=== PATIENT | male | born 1940 | race Asian ===

== ENCOUNTER 2016-11-17 14:32 | Inpatient (IN) | payer MEDICARE, MEDICAID ==
[~2016-11-17] VITALS: Ht 162.6 cm; Wt 79.4 kg
[2016-11-17] VITALS (8 sets, daily range): BP systolic 104–132; BP diastolic 86–99
[2016-11-17] MEDS ORDERED: VITAMIN C500 M1 GT (14:58)
[2016-11-17] MEDS ORDERED: FAMOTIDINE20 MG GT (14:58)
[2016-11-17] MEDS ORDERED: GABAPENTIN300 MG GT (14:58)
[2016-11-17] MEDS ORDERED: TYLENOL650 MG/20. GT (14:58)
[2016-11-17] MEDS ORDERED: SPIRONOLACTONE25 MG GT (14:58)
[2016-11-17] MEDS ORDERED: FUROSEMIDE40 MG GT (14:58)
[2016-11-17] MEDS ORDERED: ZYVOX600 MG GT (14:58)
[2016-11-17] MEDS ORDERED: CALCITRIOL0.25 MCG GT (14:58)
[2016-11-17] MEDS ORDERED: CIPRO250 MG GT (14:58)
[2016-11-17] MEDS ORDERED: VASOTEC10 MG GT (14:58)
[2016-11-17] MEDS ORDERED: CLONIDINE HCL0.1 MG GT (14:58)
[2016-11-17] MEDS ORDERED: FLUCONAZOLE100 MG GT (14:58)
[2016-11-17] MEDS ORDERED: METRONIDAZOLE500 MG GT (14:58)
[2016-11-17 15:17] LABS: MEAN CORPUSCULAR HEMOGLOBIN 31.8 PG (27.0-31.0); MEAN CORPUSCULAR VOLUME 96 FL (80-99); MEAN PLATELET VOLUME 15.8 FL (6.5-10.1); PLATELET COUNT 113 K/UL (150-450); RED BLOOD COUNT 3.13 M/UL (4.70-6.10); WHITE BLOOD COUNT 18.5 K/UL (4.8-10.8)
--- NOTE | 2016-11-17 15:24 | Emergency Room Report ---
History of Present Illness General Chief Complaint: General Complaint Source: Medical Record Present Illness HPI 76-year-old male presents to ED for evaluation. Per EMS patient be in rapid A. fib at a convalescent home today. Heart rate to the 140s. Patient has trach, G -tube, on ventilator. Upon arrival patient showing no signs of distress. No reported coughs, fevers or chills. No were shortness of breath. No aggravating or relieving factors. No other associated symptoms Allergies: Coded Allergies: No Known Allergies (Unverified , 11/17/16) Patient History Past Medical History: DM, HTN Past Surgical History: other - trach/gtube Pertinent Family History: none Social History: Denies: alcohol use, drug use, smoking Immunizations: UTD Reviewed Nursing Documentation: PMH: Agreed, PSxH: Agreed Nursing Documentation-PMH Past Medical History: No History, Except For Hx Cardiac Problems: Yes - CHF, A-fib, thrombocytopenia, sepsis Hx Hypertension: Yes Hx Diabetes: Yes Hx Gastrointestinal Problems: Yes - G -tube feeding, Protein -calorie malnutrition, GERD Review of Systems All Other Systems: negative except mentioned in HPI Physical Exam Vital Signs Date Time Temp Pulse Resp B/P Pulse Ox O2 Delivery O2 Flow Rate FiO2 11/17/16 14:35 98.8 118 12 131/95 92 Ambu-Bag 100 Sp02 EP Interpretation: reviewed, normal General Appearance: no apparent distress, alert, GCS 15, non-toxic Head: normocephalic Eyes: bilateral eye PERRL, bilateral eye normal inspection ENT: TMs + canals normal Neck: tracheotomy Respiratory: chest non-tender, lungs clear, normal breath sounds, speaking full sentences Cardiovascular #1: no edema, tachycardia Gastrointestinal: normal bowel sounds, non tender, soft, non-distended, no guarding, no rebound Rectal: deferred Genitourinary: no CVA tenderness Musculoskeletal: normal inspection Neurologic: alert, oriented x3, responsive, motor strength/tone normal, sensory intact, speech normal Psychiatric: normal inspection Skin: normal inspection Lymphatic: normal inspection Procedures Critical Care Time Critical Care Time i. I feel this is a highly complex case requiring extensive working including EKG/Rhythm strip, Xray/CT/US, Blood/urine lab work, repeat exams while in ED, and administration of strong opiates/narcotics for pain control, admission to hospital or close patient follow up. Total time: 30 min bedside evaluation and treatment excludes procedures (EKG). Reason for critical care: A. fib with RVR, sepsis, CHF, pneumonia Possible complications: hypotension, hypertension, [place], shock, arrhythmias, metabolic acidosis, end organ damage, respiratory failure. Interventions: Labs, IV fluids, EKG, chest x-ray. abx Course: Patient brought in for A. fib. Trach/vent patient. cxr shows CHF with ? infiltrate/effusion. EKG shows A. fib with RVR. Heart rate improved with IV fluids. Labs show significant leukocytosis, BNP greater than 25,000, lactate 2.7. Given antibiotics. Consultations: nursing staff, EMS, family Performed by: Dr Linares Tolerated well condition = serious j. because of unstable vital signs this patient had a condition that could potentially threaten life or limb. I feel this is a critical patient who required my full attention while patient was considered critical. Total Critical Care Time excluding procedures was greater than 35 minutes Medical Decision Making Diagnostic Impression: Primary Impression: Atrial fibrillation with rapid ventricular response Additional Impressions: CHF (congestive heart failure) Qualified Codes: I50.9 - Heart failure, unspecified Pneumonia Qualified Codes: J18.9 - Pneumonia, unspecified organism Sepsis Qualified Codes: A41.9 - Sepsis, unspecified organism ER Course Hospital Course 76-year-old male presents to ED with rapid heart rate Differential diagnoses include: [place]/unstable angina, contusion, muscle strain, PTX, rib fracture, pneumonia, Clinical course Patient placed on stretcher. on elementary classroom teacher which shows A. fib with RVR to the 120s. After initial history and physical I ordered labs, EKG, chest x-ray labs reviewed- marked leukocytosis, hemoglobin/hematocrit ok, electrolytes okay , troponins negative, BNP > 20,000. lactate 2.7 Chest x-ray- cardiomegaly, b/l atelctasis vs effusion patient given 30 mL per KG fluid bolus. Given antibiotics. Tachycardia resolved with IV fluids Case discussed with Dr. Scott and he agreed to accept the patient to his service for further care and support I. I feel this is a highly complex case requiring extensive working including EKG/Rhythm strip, Xray/CT/US, Blood/urine lab work, repeat exams while in ED, and administration of strong opiates/narcotics for pain control, admission to hospital or close patient follow up. Diagnosis - afib with RVR, CHF, pneumonia, sepsis admitted to [facility] in serious condition Labs Test 11/17/16 14:45 White Blood Count 18.5 K/UL (4.8-10.8) Red Blood Count 3.13 M/UL (4.70-6.10) Hemoglobin 10.0 G/DL (14.2-18.0) Hematocrit 30.2 % (42.0-52.0) Mean Corpuscular Volume 96 FL (80-99) Mean Corpuscular Hemoglobin 31.8 PG (27.0-31.0) Mean Corpuscular Hemoglobin Concent 33.0 G/DL (32.0-36.0) Red Cell Distribution Width 16.0 % (11.6-14.8) Platelet Count 113 K/UL (150-450) Mean Platelet Volume 15.8 FL (6.5-10.1) Neutrophils (%) (Auto) % (45.0-75.0) Lymphocytes (%) (Auto) % (20.0-45.0) Monocytes (%) (Auto) % (1.0-10.0) Eosinophils (%) (Auto) % (0.0-3.0) Basophils (%) (Auto) % (0.0-2.0) Differential Total Cells Counted 100 Neutrophils % (Manual) 94 % (45-75) Lymphocytes % (Manual) 1 % (20-45) Monocytes % (Manual) 2 % (1-10) Eosinophils % (Manual) 0 % (0-3) Basophils % (Manual) 0 % (0-2) Band Neutrophils 3 % (0-8) Platelet Estimate Decreased Platelet Morphology Giant Platelets Occasional Polychromasia 1+ Anisocytosis 1+ Macrocytosis 1+ Sodium Level 135 mEQ/L (135-145) Potassium Level 4.2 mEQ/L (3.4-4.9) Chloride Level 93 mEQ/L (98-107) Carbon Dioxide Level 32 mEQ/L (20-30) Anion Gap 10 (5-15) Blood Urea Nitrogen 37 mg/dL (7-23) Creatinine 0.7 mg/dL (0.7-1.2) Estimat Glomerular Filtration Rate mL/min (>60) Glucose Level 97 mg/dL (74-106) Lactic Acid Level 2.70 mmol/L (0.66-2.22) Calcium Level 8.3 mg/dL (8.6-10.2) Total Bilirubin 0.7 mg/dL (0.0-1.2) Aspartate Amino Transf (AST/SGOT) 30 U/L (5-40) Alanine Aminotransferase (ALT/SGPT) 16 U/L (3-41) Alkaline Phosphatase 146 U/L (40-129) Total Creatine Kinase 43 U/L (38-174) Creatine Kinase MB 2.9 ng/mL (< 6.7) Creatine Kinase MB Relative Index 6.7 Troponin I < 0.30 ng/mL (<=0.30) Pro-B-Type Natriuretic Peptide 44001 pg/mL (0-450) Total Protein 6.5 g/dL (6.6-8.7) Albumin 2.0 g/dL (3.5-5.2) Globulin 4.5 g/dL Albumin/Globulin Ratio 0.4 (1.0-2.7) EKG Diagnostic Results Rate: tachycardiac Rhythm: other - afib ST Segments: no acute changes ASA given to the pt in ED: No Rhythm Strip Diag. Results EP Interpretation: yes Rhythm: no PVC's, no ectopy Chest X-Ray Diagnostic Results EP Interpretation: No Findings: no pneumothorax, no acute cardiopulmonary disease, other - cardiomegaly. b/l effusion. ? infiltrate Number of Views: 1 Last Vital Signs Date Time Temp Pulse Resp B/P Pulse Ox O2 Delivery O2 Flow Rate FiO2 11/17/16 15:04 99.6 11/17/16 14:56 123 26 100 11/17/16 14:35 131/95 92 Ambu-Bag Status: improved Disposition: ADMITTED INPATIENT Condition: Serious Referrals: BREANNE SCOTT (PCP) IWONA LINARES M.D. Nov 17, 2016 15:24
[2016-11-17 15:30] LABS: TROPONIN I < 0.30 ng/mL (<=0.30)
[2016-11-17 15:33] LABS: ALANINE AMINOTRANSFERASE 16 U/L (3-41); ALBUMIN/GLOBULIN RATIO 0.4 (1.0-2.7); ANION GAP 10 (5-15); ASPARTATE AMINO TRANSFERASE 30 U/L (5-40); CALCIUM 8.3 mg/dL (8.6-10.2); CARBON DIOXIDE 32 mEQ/L (20-30); CHLORIDE 93 mEQ/L (98-107); CREATININE 0.7 mg/dL (0.7-1.2); HEMOLYSIS 80; POTASSIUM 4.2 mEQ/L (3.4-4.9); SODIUM 135 mEQ/L (135-145); TOTAL PROTEIN 6.5 g/dL (6.6-8.7)
[2016-11-17 15:37] LABS: REFLEX LACTIC ACID YES OR NO YES
[2016-11-17 15:44] LABS: CKMB 2.9 ng/mL (< 6.7)
[2016-11-17] MEDS ORDERED: Cefepime HCl 1 GM in NS 55 ML IV ONE (16:00)
[2016-11-17] MEDS ORDERED: Azithromycin 500 MG in NS 275 ML IV ONE (16:00)
[2016-11-17 16:02] LABS: BAND NEUTROPHILS % (MANUAL) 3 % (0-8); LYMPHOCYTES % (MANUAL) 1 % (20-45); NEUTROPHILS % (MANUAL) 94 % (45-75); TOTAL CELLS COUNTED 100
[2016-11-17 16:03] LABS: ANISOCYTOSIS 1+; BASOPHILS % (MANUAL) 0 % (0-2); EOSINOPHILS % (MANUAL) 0 % (0-3); MACROCYTES 1+; PLATELET ESTIMATE DECREASED; POLYCHROMASIA 1+
[2016-11-17] MEDS ORDERED: Cefepime 1gm vial ONE (16:22)
[2016-11-17] MEDS ORDERED: Azithromycin Inj IV ONE (16:22)
--- NOTE | 2016-11-17 16:31 | Diagnostic Imaging Report ---
Indication: Shortness of breath Technique: One view of the chest Comparison: none Findings: There is extensive bilateral diffuse interstitial and alveolar parenchymal infiltrates versus edema. There is probably a moderate to large left-sided pleural effusion. The heart size is difficult to assess, suspect borderline enlarged. Tracheostomy is present. There are degenerative changes of the right shoulder Impression: Bilateral diffuse parenchymal infiltrates versus edema. Left pleural effusion Tracheostomy
[2016-11-17 16:41] LABS: APPEARANCE,URINE CLEAR; KETONES,URINE NEGATIVE (NEGATIVE); LEUKOCYTE ESTERASE ,URINE 2+ (NEGATIVE); NITRITE,URINE NEGATIVE (NEGATIVE); PH,URINE 5 (4.5-8.0); PROTEIN,URINE 2+ (NEGATIVE); UROBILINOGEN,URINE NORMAL MG/DL (0.0-1.0)
[2016-11-17 17:35] LABS: BACTERIA,URINE MODERATE /HPF; WBC,URINE 20-30 /HPF (0 - 0)
[2016-11-18] VITALS: BP 130/91
[2016-11-18] MEDS ORDERED: Carvedilol 6.25mg Tab GT ONE
--- NOTE | 2016-11-18 00:28 | Consultation ---
DATE OF CONSULTATION: 11/17/2016 CARDIOLOGY CONSULTATION: CONSULTING PHYSICIAN: Ryan Desai M.D. REQUESTING PHYSICIAN: Merlin Scott M.D. REASON FOR CONSULTATION: Rapid atrial fibrillation in the setting of his systolic congestive heart failure. HISTORY OF PRESENT ILLNESS: This is a 76-year-old male with ventilator-dependent respiratory failure. He is status post tracheostomy about six weeks ago. He was hospitalized at [facility]. 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 He was ultimately stabilized and discharged to a alf facility. PAST MEDICAL HISTORY: Type 2 diabetes mellitus, hypertension, paroxysmal atrial fibrillation, tachy-boris syndrome, conduction system disease of the heart, chronic systolic congestive heart failure, respiratory failure with tracheostomy, and prostatic hypertrophy. MEDICATIONS: Reviewed and reconciled. ALLERGIES: None. FAMILY HISTORY: Noncontributory. SOCIAL HISTORY: Decision maker is his sister. No record of smoking, alcohol, or substance abuse. REVIEW OF SYSTEMS: Otherwise not obtainable from the patient. PHYSICAL EXAMINATION: VITAL SIGNS: Afebrile, blood pressure 131/95, pulse rate 118, and respiratory rate 12. HEENT: Normocephalic and atraumatic. Conjunctivae are pink. Oropharynx is clear. NECK: Supple. Trach site with thin secretions. LUNGS: With bilateral breath sounds and rales. CARDIAC: Irregularly irregular rhythm. Rapid rate. Normal S1 and S2. No murmur. ABDOMEN: Soft and nontender. EXTREMITIES: With dependent edema of 2+ to his thigh. DIAGNOSTIC AND LABORATORY DATA: EKG reveals atrial fibrillation, rapid ventricular response, and nonspecific ST-T wave changes. Chest x-ray reveals congestive heart failure with cardiomegaly and pleural effusions. Pro-natriuretic peptide is over 20,000. Lactate is 2.7. Urinalysis is with 15 to 20 white cells. IMPRESSION: 1. Paroxysmal atrial fibrillation with rapid ventricular response. 2. Acute on chronic systolic congestive heart failure. 3. Sepsis. 4. Possible pneumonia. 5. Ventilator-dependent respiratory failure. 6. Urinary tract infection. 7. Severe cardiomyopathy. PLAN: 1. Ventilator support. 2. Panculture. 3. Empiric antibiotics. 4. Diuresis. 5. Adjust ventilator settings to optimize acid-based status. 6. Titrate beta-tin and angiotensin-converting enzyme inhibitor. 7. Hold diuresis for now. 8. ICU care. 9. Cardiac monitoring. Ryan Desai M.D. DR: Ara JOB#: [id number] CC:
[2016-11-18] MEDS: Enalapril 5mg tab GT SCH ×3 (01:22→21:39)
[2016-11-18] MEDS ORDERED: NOVOLOG100 UNIT/3 SUBQ (01:57)
[2016-11-18] MEDS ORDERED: COLACE100 MG GT (01:57)
[2016-11-18] MEDS ORDERED: NORCO 5-325 TA1 EACH GT ×2 (01:57)
[2016-11-18] MEDS ORDERED: PROMOD946 ML GT (01:57)
[2016-11-18] MEDS ORDERED: dulcolax suppository RECTAL (01:57)
[2016-11-18] MEDS ORDERED: APATATE FORTE237 ML GT (01:57)
[2016-11-18] MEDS ORDERED: MULTIVITAMINS1 EA13 ORAL (01:57)
[2016-11-18] MEDS ORDERED: ZOFRAN 4 MG4 MG/2 ML IV (01:57)
[2016-11-18] MEDS ORDERED: MILK OF MA400 MG/51 GT (01:57)
[2016-11-18] MEDS ORDERED: FLEET ENEMA133 ML (01:57)
[2016-11-18] MEDS ORDERED: ZINC SULFATE220 M1 GT (01:57)
[2016-11-18] MEDS ORDERED: EPOGEN20000 UNIT SUBQ (02:10)
[2016-11-18] MEDS ORDERED: IRON325 M2 GT (02:11)
[2016-11-18] MEDS ORDERED: Metoprolol 5mg/5ml Inj IVP ONE ×3 (03:00→10:00)
[2016-11-18 04:00] VITALS: BP_SYST 113; BP_DIAS 84; BP_DIAS 85
[2016-11-18 04:54] LABS: MEAN CORPUSCULAR HEMOGLOBIN 31.9 PG (27.0-31.0); MEAN CORPUSCULAR HGB CONC 33.2 G/DL (32.0-36.0); MEAN CORPUSCULAR VOLUME 96 FL (80-99); MEAN PLATELET VOLUME 13.6 FL (6.5-10.1); PLATELET COUNT 72 K/UL (150-450); RED BLOOD COUNT 2.42 M/UL (4.70-6.10); RED CELL DISTRIBUTION WIDTH 16.1 % (11.6-14.8); WHITE BLOOD COUNT 18.5 K/UL (4.8-10.8)
[2016-11-18 05:14] LABS: ALANINE AMINOTRANSFERASE 13 U/L (3-41); ALBUMIN/GLOBULIN RATIO 0.4 (1.0-2.7); ANION GAP 10 (5-15); ASPARTATE AMINO TRANSFERASE 23 U/L (5-40); CALCIUM 7.7 mg/dL (8.6-10.2); CARBON DIOXIDE 31 mEQ/L (20-30); CHLORIDE 98 mEQ/L (98-107); CREATININE 0.6 mg/dL (0.7-1.2); HEMOLYSIS 1; POTASSIUM 3.5 mEQ/L (3.4-4.9); SODIUM 139 mEQ/L (135-145); TOTAL PROTEIN 5.3 g/dL (6.6-8.7)
[2016-11-18] MEDS ORDERED: NovoLOG Insulin Flexpen SUBQ SCH (06:00)
[2016-11-18] MEDS ORDERED: Norco 5mg/325mg tab GT PRN (06:00)
[2016-11-18] MEDS ORDERED: Acetaminophen 650mg/20.3ml GT PRN (06:00)
[2016-11-18] MEDS ORDERED: Fleet's Enema 133ml RECTAL PRN (06:00)
[2016-11-18] MEDS ORDERED: Milk of Magnesia 30ml Ud GT PRN (06:00)
[2016-11-18] MEDS: NovoLOG Insulin Flexpen SUBQ SCH ×3 (06:46→18:02)
[2016-11-18 08:00] VITALS: BP 138/68
--- NOTE | 2016-11-18 08:28 | Progress Note ---
DATE: 11/18/2016 CARDIOLOGY PROGRESS NOTE SUBJECTIVE: The patient remains on ventilator support. He continues to have congestion, monitored rhythm, atrial fibrillation, frequent ventricular ectopics, and increased ventricular response. OBJECTIVE: VITAL SIGNS: Blood pressure is 130/90, heart rate, 113, respiratory is 14 to 18 and the patient remains afebrile. LUNGS: Bilateral breath sounds with rhonchi. Basilar rales. CARDIAC: Irregularly irregular rhythm. Normal S1 and S2. A 1/6 systolic apical murmur. ABDOMEN: Soft. EXTREMITIES: With trace edema. LABORATORY AND DIAGNOSTIC DATA: White count 18.5 and hemoglobin 7.7. Potassium 3.5, BUN 36, and creatinine 0.6. Albumin 1.7. IMPRESSION: 1. Sepsis. 2. Lactic acidosis resolved. 3. Probable pneumonia. 4. Urinary tract infection. 5. Hypertensive heart disease. 6. Acute on chronic systolic congestive heart failure. 7. Paroxysmal atrial fibrillation with rapid ventricular response. 8. 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 PLAN: Advance beta-tin. Continue and titrate anti-failure regimen. Antimicrobials. Respiratory hygiene. The patient may require a pacemaker in the future although this should be deferred unless absolutely necessary as the patient has very poor performance status. Ryan Desai M.D. DR: Gaby JOB#: [id number] CC:
[2016-11-18] MEDS: Calcitriol 0.25mcg Cap GT SCH (09:00)
[2016-11-18] MEDS ORDERED: Multivitamin w/Minerals tab ORAL SCH (09:00)
[2016-11-18] MEDS: Zinc Sulfate 220mg cap GT SCH (09:00)
[2016-11-18] MEDS: Spironolactone 25mg tab GT SCH (09:00)
[2016-11-18] MEDS ORDERED: Furosemide 40mg tab GT SCH (09:00)
[2016-11-18] MEDS: Multivitamin 5ml Liquid GT SCH (09:00)
[2016-11-18] MEDS ORDERED: Metoprolol 5mg/5ml Inj IVP SCH (09:00)
[2016-11-18] MEDS: Gabapentin 300 MG/6 ML Soln GT SCH ×3 (09:00→18:05)
[2016-11-18 09:24] LABS: ANISOCYTOSIS 1+; BAND NEUTROPHILS % (MANUAL) 1 % (0-8); BASOPHILS % (MANUAL) 0 % (0-2); EOSINOPHILS % (MANUAL) 0 % (0-3); LYMPHOCYTES % (MANUAL) 2 % (20-45); NEUTROPHILS % (MANUAL) 96 % (45-75); PLATELET ESTIMATE DECREASED; PLATELET MORPHOLOGY NORMAL; TOTAL CELLS COUNTED 100
[2016-11-18 09:25] LABS: HYPOCHROMASIA 1+
[2016-11-18] MEDS ORDERED: Pneumococcal Vaccine 25mcg/0.5ml IM ONE (10:00)
[2016-11-18] MEDS ORDERED: Influenza Virus Vaccine 0.5ml IM ONE (10:00)
[2016-11-18] MEDS: Docusate 100mg tablet GT SCH (10:02)
[2016-11-18] MEDS: Ascorbic Acid 500mg tab GT SCH (10:02)
[2016-11-18] MEDS: Carvedilol 6.25mg Tab GT SCH ×2 (10:02→21:39)
--- NOTE | 2016-11-18 10:59 | History & Physical ---
History and Physical History & Physicial HISTORY OF PRESENT ILLNESS: 76-year-old male with ventilator-dependent respiratory failure and chronic debility with recent prolonged hospitalization. He is status post tracheostomy about six weeks ago. He was hospitalized at [facility]. 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 He was admitted with rapid atrial fib and sepsis. Patient had multiple issues including thrombocytopenia, anemia, and need for transfusion. patient is now ventilator dependent. SNF records reviewed PAST MEDICAL HISTORY: Pneumonia, thrombocytopenia, anemia, prior transfusion, Type 2 diabetes mellitus, hypertension, paroxysmal atrial fibrillation, conduction system disease of the heart, chronic systolic congestive heart failure, hematuria respiratory failure with tracheostomy, and prostatic hypertrophy. MEDICATIONS: Reviewed and reconciled. ALLERGIES: None. FAMILY HISTORY: Noncontributory. SOCIAL HISTORY: Decision maker is his sister. No record of smoking, alcohol, or substance abuse. now at [facility] REVIEW OF SYSTEMS: not obtainable from the patient. PHYSICAL EXAMINATION: VITAL SIGNS: 98.8 98%, blood pressure 138/68, pulse rate 113, and respiratory rate 14. HEENT: Normocephalic and atraumatic. Conjunctivae are pink. Oropharynx is clear. NECK: Supple. Trach site clear; carotid upstroke normal LUNGS: With bilateral breath sounds and some rhonchi CARDIAC: Irregularly irregular rhythm. Rapid rate. Normal S1 and S2. No murmur. rubs or gallops ABDOMEN: Soft and nontender. no HSM; GT EXTREMITIES: With dependent edema of 2+ without CC. NEURO: nonfocal and weak DIAGNOSTIC AND LABORATORY DATA: Labs Test 11/17/16 14:45 11/17/16 16:18 11/18/16 04:10 White Blood Count 18.5 K/UL (4.8-10.8) 18.5 K/UL (4.8-10.8) Red Blood Count 3.13 M/UL (4.70-6.10) 2.42 M/UL (4.70-6.10) Hemoglobin 10.0 G/DL (14.2-18.0) 7.7 G/DL (14.2-18.0) Hematocrit 30.2 % (42.0-52.0) 23.2 % (42.0-52.0) Mean Corpuscular Volume 96 FL (80-99) 96 FL (80-99) Mean Corpuscular Hemoglobin 31.8 PG (27.0-31.0) 31.9 PG (27.0-31.0) Mean Corpuscular Hemoglobin Concent 33.0 G/DL (32.0-36.0) 33.2 G/DL (32.0-36.0) Red Cell Distribution Width 16.0 % (11.6-14.8) 16.1 % (11.6-14.8) Platelet Count 113 K/UL (150-450) 72 K/UL (150-450) Mean Platelet Volume 15.8 FL (6.5-10.1) 13.6 FL (6.5-10.1) Neutrophils (%) (Auto) % (45.0-75.0) % (45.0-75.0) Lymphocytes (%) (Auto) % (20.0-45.0) % (20.0-45.0) Monocytes (%) (Auto) % (1.0-10.0) % (1.0-10.0) Eosinophils (%) (Auto) % (0.0-3.0) % (0.0-3.0) Basophils (%) (Auto) % (0.0-2.0) % (0.0-2.0) Differential Total Cells Counted 100 100 Neutrophils % (Manual) 94 % (45-75) 96 % (45-75) Lymphocytes % (Manual) 1 % (20-45) 2 % (20-45) Monocytes % (Manual) 2 % (1-10) 1 % (1-10) Eosinophils % (Manual) 0 % (0-3) 0 % (0-3) Basophils % (Manual) 0 % (0-2) 0 % (0-2) Band Neutrophils 3 % (0-8) 1 % (0-8) Platelet Estimate Decreased Decreased Platelet Morphology Normal Giant Platelets Occasional Polychromasia 1+ Anisocytosis 1+ 1+ Macrocytosis 1+ Sodium Level 135 mEQ/L (135-145) 139 mEQ/L (135-145) Potassium Level 4.2 mEQ/L (3.4-4.9) 3.5 mEQ/L (3.4-4.9) Chloride Level 93 mEQ/L (98-107) 98 mEQ/L (98-107) Carbon Dioxide Level 32 mEQ/L (20-30) 31 mEQ/L (20-30) Anion Gap 10 (5-15) 10 (5-15) Blood Urea Nitrogen 37 mg/dL (7-23) 36 mg/dL (7-23) Creatinine 0.7 mg/dL (0.7-1.2) 0.6 mg/dL (0.7-1.2) Estimat Glomerular Filtration Rate mL/min (>60) mL/min (>60) Glucose Level 97 mg/dL (74-106) 50 mg/dL (74-106) Lactic Acid Level 2.70 mmol/L (0.66-2.22) 2.50 mmol/L (0.66-2.22) 1.50 mmol/L (0.66-2.22) Calcium Level 8.3 mg/dL (8.6-10.2) 7.7 mg/dL (8.6-10.2) Total Bilirubin 0.7 mg/dL (0.0-1.2) 0.6 mg/dL (0.0-1.2) Aspartate Amino Transf (AST/SGOT) 30 U/L (5-40) 23 U/L (5-40) Alanine Aminotransferase (ALT/SGPT) 16 U/L (3-41) 13 U/L (3-41) Alkaline Phosphatase 146 U/L (40-129) 122 U/L (40-129) Total Creatine Kinase 43 U/L (38-174) Creatine Kinase MB 2.9 ng/mL (< 6.7) Creatine Kinase MB Relative Index 6.7 Troponin I < 0.30 ng/mL (<=0.30) Pro-B-Type Natriuretic Peptide 78643 pg/mL (0-450) Total Protein 6.5 g/dL (6.6-8.7) 5.3 g/dL (6.6-8.7) Albumin 2.0 g/dL (3.5-5.2) 1.7 g/dL (3.5-5.2) Globulin 4.5 g/dL 3.6 g/dL Albumin/Globulin Ratio 0.4 (1.0-2.7) 0.4 (1.0-2.7) Urine Color Yellow Urine Appearance Clear Urine pH 5 (4.5-8.0) Urine Specific [place] 1.015 (1.005-1.035) Urine Protein 2+ (NEGATIVE) Urine Glucose (UA) Negative (NEGATIVE) Urine Ketones Negative (NEGATIVE) Urine Occult Blood 5+ (NEGATIVE) Urine Nitrite Negative (NEGATIVE) Urine Bilirubin Negative (NEGATIVE) Urine Urobilinogen Normal MG/DL (0.0-1.0) Urine Leukocyte Esterase 2+ (NEGATIVE) Urine RBC 5-10 /HPF (0 - 0) Urine WBC 20-30 /HPF (0 - 0) Urine Squamous Epithelial Cells None /LPF (NONE/OCC) Urine Bacteria Moderate /HPF (NONE) Hypochromasia 1+ IMPRESSION: 1. Paroxysmal atrial fibrillation with rapid ventricular response. 2. Acute on chronic systolic congestive heart failure. 3. Sepsis syncrome. 4. leukocytosis 5. Ventilator-dependent respiratory failure. 6. thrombocytopenia 7. Severe cardiomyopathy. 8. anemia 9. acute on chronic encephalopathy 10. GT 11. Aspiration PLAN: 1. Ventilator management 2. Panculture. 3. Empiric antibiotics. ID evaluation 4. Diuresis per cardiology when appropriate 5. monitor acid-based status. 6. Titrate beta-tin and angiotensin-converting enzyme inhibitor per cardiology. 7. resume SNF meds 8. resume feeds 9. Cardiac monitoring needed impression, plan, and exam edited and reviewed in detail care discussed with BREANNE MEDRANO Nov 18, 2016 10:59
[2016-11-18 12:00] VITALS: BP 101/80
[2016-11-18] MEDS ORDERED: Fluconazole 100mg tab GT SCH (12:00)
[2016-11-18] MEDS ORDERED: metroNIDAZOLE 500mg tab GT SCH (13:00)
[2016-11-18] MEDS ORDERED: Vancomycin 1gm/D5W 275ml IVPB ONE ×4 (14:00→19:00)
[2016-11-18 16:00] VITALS: BP 122/94
[2016-11-18] MEDS ORDERED: Vancomycin 750mg/D5W 275ml IVPB SCH ×2 (17:00)
--- NOTE | 2016-11-18 18:08 | Consultation ---
DATE OF CONSULTATION: 11/18/2016 INFECTIOUS DISEASE CONSULTATION REFERRING PHYSICIAN: Merlin Scott M.D. REASON FOR CONSULTATION: Pneumonia. HISTORY OF PRESENTING ILLNESS: This is a 76-year-old gentleman with history of respiratory failure, status post tracheostomy, who came in to [facility]. An Infectious Diseases consultation has been obtained for pneumonia. PAST MEDICAL HISTORY: 1. History of pneumonia. 2. Diabetes. 3. Hypertension. 4. Atrial fibrillation. 5. Conduction system disease. 6. Congestive heart failure. 7. Respiratory failure, status post tracheostomy. 8. Status post G-tube placement. 9. Prostatic hypertrophy. MEDICATIONS: As an inpatient, the patient is on Epogen, Cipro, Flagyl, fluconazole, Coreg, metoprolol, ascorbic acid, calcitriol, docusate, Lasix, gabapentin, linezolid, spironolactone, zinc sulfate, multivitamin, insulin, clonidine, Tylenol, [place], milk of magnesia, Zofran and Vasotec. ALLERGIES: No known drug allergies. SOCIAL HISTORY: No history of smoking, alcohol, or drug use. FAMILY HISTORY: Unknown. REVIEW OF SYSTEMS: Unable to obtain currently. PHYSICAL EXAMINATION: VITAL SIGNS: Temperature of 95.9 degrees, T-max of 100.6 degrees, pulse of 95, respiratory rate 20, blood pressure 138/68 and O2 saturation of 100%. HEENT: Pupils equally reactive to light and accommodation. Mouth appears clean without thrush. NECK: Supple. No adenopathy. No JVD. CARDIOVASCULAR: Regular rate and rhythm. No murmurs. LUNGS: Clear to auscultation bilaterally. No crackles. No wheezes. ABDOMEN: Soft and nontender. No organomegaly. G-tube site appears clean. EXTREMITIES: No cyanosis and no clubbing. Edema noted bilaterally. LABORATORY AND DIAGNOSTIC DATA: White count 18.5, hemoglobin 7.7, hematocrit 23.2, MCV 96, and platelet count of 72,000 with neutrophils of 96%. Sodium 139, potassium 3.5, chloride 98, bicarbonate 31, BUN 36, creatinine 0.6 and glucose 50. Calcium 7.7. Total bilirubin 0.6. AST 23, ALT 13 and alkaline phosphatase 122. Total protein 5.3. Albumin 1.7. Urinalysis showing 20 to 30 white cells. Urine cultures are negative so far. Chest x-ray showing bilateral diffuse parenchymal infiltrates versus edema. Left-sided pleural effusion noted. ASSESSMENT: The patient is a 76-year-old gentleman with history of respiratory failure, status post tracheostomy who comes in with 1. Possible aspiration pneumonia. 2. Leukocytosis. 3. Diabetes. 4. Hypertension. 5. Urinary tract infection. PLAN: 1. We will order sputum for Gram stain and culture. 2. We will order blood cultures. 3. Discontinue linezolid, Cipro, Flagyl and fluconazole. 4. We will start the patient on vancomycin and Zosyn. 5. We will follow up cultures and adjust antibiotics accordingly. I would like to thank, Dr. Scott, for this consultation. Toya Raphael M.D. DR: MICHAEL JOB#: [id number] CC: Merlin Scott M.D.
[2016-11-18 20:00] VITALS: BP 130/85
--- NOTE | 2016-11-18 20:34 | General Progress Note ---
Assessment/Plan Problem List: (1) CKD (chronic kidney disease) stage 2, GFR 60-89 ml/min ICD Codes: N18.2 - Chronic kidney disease, stage 2 (mild) SNOMED: 814965688 (2) Tachy-boris syndrome ICD Codes: I49.5 - Sick sinus syndrome SNOMED: 53886637 (3) Chronic respiratory failure ICD Codes: J96.10 - Chronic respiratory failure, unspecified whether with hypoxia or hypercapnia SNOMED: 69096525 (4) CHF (congestive heart failure) ICD Codes: I50.9 - Heart failure, unspecified SNOMED: 69484110 Qualifiers: Qualified Codes: I50.9 - Heart failure, unspecified (5) Pneumonia ICD Codes: J18.9 - Pneumonia, unspecified organism SNOMED: 627146728 Qualifiers: Qualified Codes: J18.9 - Pneumonia, unspecified organism (6) Sepsis ICD Codes: A41.9 - Sepsis, unspecified organism SNOMED: 05733272 Qualifiers: Qualified Codes: A41.9 - Sepsis, unspecified organism (7) Atrial fibrillation with rapid ventricular response ICD Codes: I48.91 - Unspecified atrial fibrillation SNOMED: 458833737084607 Status: stable Assessment/Plan vent support resp rx sucitoning iv abx monitor h/h transfuse as neded monitor for bleeding follow up cultures tele poor prognosis Subjective ROS Limited/Unobtainable: No Constitutional: Reports: malaise, weakness HEENT: Reports: no symptoms Cardiovascular: Reports: palpitations Respiratory: Reports: cough, shortness of breath, sputum Gastrointestinal/Abdominal: Reports: no symptoms Genitourinary: Reports: no symptoms Neurologic/Psychiatric: Reports: pre-existing deficit Endocrine: Reports: no symptoms Hematologic/Lymphatic: Reports: anemia Allergies: Coded Allergies: No Known Allergies (Unverified , 11/17/16) All Systems: reviewed and negative except above Subjective events noted. chart reviewed. admitted with sepsis, anemia, afib with rvr. vent dependent. history of chronic resp failure and ckd. on iv abx. s/p transfusion Objective Last 24 Hour Vital Signs Date Time Temp Pulse Resp B/P Pulse Ox O2 Delivery O2 Flow Rate FiO2 11/18/16 18:41 89 21 60 11/18/16 17:21 94 18 60 11/18/16 16:40 90 11/18/16 16:00 97.5 77 13 122/94 100 Mechanical Ventilator 50 11/18/16 16:00 89 11/18/16 16:00 50 11/18/16 15:07 85 16 60 11/18/16 13:06 77 18 60 11/18/16 12:00 50 11/18/16 12:00 97.0 96 20 101/80 100 Mechanical Ventilator 50 11/18/16 11:24 95 20 60 11/18/16 10:02 138/68 11/18/16 10:02 119 138/68 11/18/16 09:22 89 12 60 11/18/16 08:00 50 11/18/16 08:00 95.9 119 12 138/68 100 Mechanical Ventilator 50 11/18/16 08:00 85 11/18/16 06:53 79 12 60 11/18/16 04:47 81 14 60 11/18/16 04:16 113 130/91 11/18/16 04:00 97.5 93 16 113/85 100 Room Air 11/18/16 04:00 50 11/18/16 04:00 97.5 93 16 113/84 100 Mechanical Ventilator 100.0 11/18/16 03:20 113 18 60 11/18/16 01:22 130/91 11/18/16 01:22 118 130/91 11/18/16 01:06 118 16 70 11/18/16 00:00 50 11/18/16 00:00 100.6 124 16 130/91 100 Mechanical Ventilator 11/18/16 00:00 100.6 124 16 130/91 100 Mechanical Ventilator 11/18/16 00:00 126 11/17/16 23:29 111 17 70 11/17/16 23:10 99.2 106 15 118/95 100 Mechanical Ventilator 80 11/17/16 22:32 99.2 106 15 118/95 100 Mechanical Ventilator 80 11/17/16 21:35 100 15 132/86 100 Mechanical Ventilator 80 11/17/16 21:08 108 16 90 Intake and Output 11/17/16 11/18/16 19:00 07:00 Intake Total 2330 ml 500 ml Output Total 155 ml 700 ml Balance 2175 ml -200 ml Intake Oral 0 ml IV Total 2330 ml 500 ml Output Urine Total 155 ml 700 ml # Bowel Movements 1 Laboratory Tests 11/18/16 04:10: White Blood Count 18.5H, Red Blood Count 2.42L, Hemoglobin 7.7L, Hematocrit 23.2L, Mean Corpuscular Volume 96, Mean Corpuscular Hemoglobin 31.9H, Mean Corpuscular Hemoglobin Concent 33.2, Red Cell Distribution Width 16.1H, Platelet Count 72L, Mean Platelet Volume 13.6H, Neutrophils (%) (Auto) , Lymphocytes (%) (Auto) , Monocytes (%) (Auto) , Eosinophils (%) (Auto) , Basophils (%) (Auto) , Differential Total Cells Counted 100, Neutrophils % ( Manual) 96H, Lymphocytes % (Manual) 2L, Monocytes % (Manual) 1, Eosinophils % ( Manual) 0, Basophils % (Manual) 0, Band Neutrophils 1, Platelet Estimate DecreasedL, Platelet Morphology Normal, Hypochromasia 1+, Anisocytosis 1+, Sodium Level 139, Potassium Level 3.5, Chloride Level 98, Carbon Dioxide Level 31H, Anion Gap 10, Blood Urea Nitrogen 36H, Creatinine 0.6L, Estimat Glomerular Filtration Rate , Glucose Level 50L, Lactic Acid Level 1.50, Calcium Level 7.7L , Total Bilirubin 0.6, Aspartate Amino Transf (AST/SGOT) 23, Alanine Aminotransferase (ALT/SGPT) 13, Alkaline Phosphatase 122, Total Protein 5.3L, Albumin 1.7L, Globulin 3.6, Albumin/Globulin Ratio 0.4L Height (Feet): 5 Height (Inches): 4.00 Weight (Pounds): 175 General Appearance: WD/WN, alert Neck: supple Cardiovascular: irregularly irregular Respiratory/Chest: rhonchi - bilaterally Abdomen: normal bowel sounds, non tender, soft, no organomegaly, no mass Edema: moderate edema Neurologic: continuous improvement specialist II-XII grossly normal, alert, responsive Skin: normal pigmentation STEPHANIE FARFAN Nov 18, 2016 20:34
[2016-11-18] MEDS: Norco 5mg/325mg tab GT PRN (21:48)
[2016-11-19] VITALS: BP 115/94
[2016-11-19] MEDS: NovoLOG Insulin Flexpen SUBQ SCH ×4 (00:45→17:55)
[2016-11-19] MEDS ORDERED: Vancomycin 750mg/D5W 275ml IVPB SCH ×4 (02:00→05:00)
[2016-11-19 04:00] VITALS: BP 114/82
--- NOTE | 2016-11-19 07:41 | General Progress Note ---
Assessment/Plan Problem List: (1) CKD (chronic kidney disease) stage 2, GFR 60-89 ml/min ICD Codes: N18.2 - Chronic kidney disease, stage 2 (mild) SNOMED: 652537990 (2) Tachy-boris syndrome ICD Codes: I49.5 - Sick sinus syndrome SNOMED: 53898468 (3) Chronic respiratory failure ICD Codes: J96.10 - Chronic respiratory failure, unspecified whether with hypoxia or hypercapnia SNOMED: 96346386 (4) CHF (congestive heart failure) ICD Codes: I50.9 - Heart failure, unspecified SNOMED: 70456900 Qualifiers: Qualified Codes: I50.9 - Heart failure, unspecified (5) Pneumonia ICD Codes: J18.9 - Pneumonia, unspecified organism SNOMED: 899640490 Qualifiers: Qualified Codes: J18.9 - Pneumonia, unspecified organism (6) Sepsis ICD Codes: A41.9 - Sepsis, unspecified organism SNOMED: 49223196 Qualifiers: Qualified Codes: A41.9 - Sepsis, unspecified organism (7) Atrial fibrillation with rapid ventricular response ICD Codes: I48.91 - Unspecified atrial fibrillation SNOMED: 325594123307434 Status: stable, progressing Assessment/Plan vent support resp rx sucitoning iv abx monitor h/h transfuse as neded monitor for bleeding follow up cultures try iv diuresis tele poor prognosis Subjective ROS Limited/Unobtainable: No Constitutional: Reports: malaise, weakness HEENT: Reports: no symptoms Cardiovascular: Reports: edema Respiratory: Reports: shortness of breath Gastrointestinal/Abdominal: Reports: difficulty swallowing Genitourinary: Reports: no symptoms Neurologic/Psychiatric: Reports: pre-existing deficit Endocrine: Reports: no symptoms Hematologic/Lymphatic: Reports: anemia Allergies: Coded Allergies: No Known Allergies (Unverified , 11/17/16) All Systems: reviewed and negative except above Subjective no overnite events. denies chest pain minimal sob. wants to "go home" denies pain Objective Last 24 Hour Vital Signs Date Time Temp Pulse Resp B/P Pulse Ox O2 Delivery O2 Flow Rate FiO2 11/19/16 07:23 88 22 50 11/19/16 05:08 85 20 60 11/19/16 04:00 97.6 89 17 114/82 100 Mechanical Ventilator 50 11/19/16 04:00 50 11/19/16 03:37 85 11/19/16 02:53 91 19 60 11/19/16 01:00 89 18 60 11/19/16 00:00 50 11/19/16 00:00 97.3 91 17 115/94 100 Mechanical Ventilator 50 11/18/16 23:01 94 15 60 11/18/16 22:50 98.0 11/18/16 21:39 130/85 11/18/16 21:39 84 130/85 11/18/16 20:37 84 29 60 11/18/16 20:00 50 11/18/16 20:00 98.0 85 15 130/85 100 Mechanical Ventilator 50 11/18/16 19:04 85 11/18/16 18:41 89 21 60 11/18/16 17:21 94 18 60 11/18/16 16:40 90 11/18/16 16:00 97.5 77 13 122/94 100 Mechanical Ventilator 50 11/18/16 16:00 89 11/18/16 16:00 50 11/18/16 15:07 85 16 60 11/18/16 13:06 77 18 60 11/18/16 12:00 50 11/18/16 12:00 97.0 96 20 101/80 100 Mechanical Ventilator 50 11/18/16 11:24 95 20 60 11/18/16 10:02 138/68 11/18/16 10:02 119 138/68 11/18/16 09:22 89 12 60 11/18/16 08:00 50 11/18/16 08:00 95.9 119 12 138/68 100 Mechanical Ventilator 50 11/18/16 08:00 85 Intake and Output 11/18/16 11/19/16 19:00 07:00 Intake Total 1005 ml 560 ml Output Total 175 ml 450 ml Balance 830 ml 110 ml Free Water 305 ml 110 ml Tube Feeding 450 ml 450 ml Blood Product 250 ml Output Urine Total 175 ml 450 ml # Bowel Movements 1 2 Height (Feet): 5 Height (Inches): 4.00 Weight (Pounds): 175 General Appearance: WD/WN, alert, confused Neck: supple Cardiovascular: regular rhythm Respiratory/Chest: rhonchi - bilaterally Abdomen: normal bowel sounds, non tender, soft, no organomegaly Edema: moderate edema Neurologic: alert, responsive Skin: normal pigmentation UOMOTO,STEPHANIE Nov 19, 2016 07:41
[2016-11-19 08:00] VITALS: BP 129/98
[2016-11-19] MEDS: Docusate 100mg tablet GT SCH (09:00)
[2016-11-19] MEDS: Zinc Sulfate 220mg cap GT SCH (09:25)
[2016-11-19] MEDS: Ascorbic Acid 500mg tab GT SCH (09:25)
[2016-11-19] MEDS: Carvedilol 6.25mg Tab GT SCH ×2 (09:25→20:12)
[2016-11-19] MEDS: Enalapril 5mg tab GT SCH ×2 (09:26→20:11)
[2016-11-19] MEDS: Spironolactone 25mg tab GT SCH (09:26)
[2016-11-19] MEDS: Multivitamin 5ml Liquid GT SCH (09:26)
[2016-11-19] MEDS: Gabapentin 300 MG/6 ML Soln GT SCH ×3 (09:46→17:50)
--- NOTE | 2016-11-19 09:59 | Pulmonology Progress Note ---
Assessment/Plan Assessment/Plan IMPRESSION: 1. Paroxysmal atrial fibrillation with rapid ventricular response. intermittent atrial flutter 2. Acute on chronic systolic congestive heart failure. 3. Sepsis syndrome. 4. leukocytosis persistent 5. Ventilator-dependent respiratory failure. 6. thrombocytopenia 7. Severe cardiomyopathy. 8. anemia 9. acute on chronic encephalopathy 10. GT 11. Aspiration PLAN: 1. Ventilator management as is; no wean for now 2. Panculture. culture noted 3. Empiric antibiotics. ID evaluation 4. stabilize rhythm 5. monitor acid-based status. 6. beta-tin and angiotensin-converting enzyme inhibitor per cardiology. 7. resumed SNF meds 8. resumed feeds 9. Cardiac monitoring needed 10. transfer back to SNF once cleared by cards impression, plan, and exam edited and reviewed in detail care discussed with RN Subjective ROS Limited/Unobtainable: Yes Allergies: Coded Allergies: No Known Allergies (Unverified , 11/17/16) Subjective withdrawn overall care noted tele with atrial flutter Objective Last 24 Hour Vital Signs Date Time Temp Pulse Resp B/P Pulse Ox O2 Delivery O2 Flow Rate FiO2 11/19/16 09:26 114/82 11/19/16 09:25 88 114/82 11/19/16 07:23 88 22 50 11/19/16 05:08 85 20 60 11/19/16 04:00 97.6 89 17 114/82 100 Mechanical Ventilator 50 11/19/16 04:00 50 11/19/16 03:37 85 11/19/16 02:53 91 19 60 11/19/16 01:00 89 18 60 11/19/16 00:00 50 11/19/16 00:00 97.3 91 17 115/94 100 Mechanical Ventilator 50 11/18/16 23:01 94 15 60 11/18/16 22:50 98.0 11/18/16 21:39 130/85 11/18/16 21:39 84 130/85 11/18/16 20:37 84 29 60 11/18/16 20:00 50 11/18/16 20:00 98.0 85 15 130/85 100 Mechanical Ventilator 50 11/18/16 19:04 85 11/18/16 18:41 89 21 60 11/18/16 17:21 94 18 60 11/18/16 16:40 90 11/18/16 16:00 97.5 77 13 122/94 100 Mechanical Ventilator 50 11/18/16 16:00 89 11/18/16 16:00 50 11/18/16 15:07 85 16 60 11/18/16 13:06 77 18 60 11/18/16 12:00 50 11/18/16 12:00 97.0 96 20 101/80 100 Mechanical Ventilator 50 11/18/16 11:24 95 20 60 11/18/16 10:02 138/68 11/18/16 10:02 119 138/68 Intake and Output 11/18/16 11/19/16 19:00 07:00 Intake Total 1005 ml 885.000 ml Output Total 175 ml 450 ml Balance 830 ml 435.000 ml Free Water 305 ml 110 ml IV Total 325.000 ml Tube Feeding 450 ml 450 ml Blood Product 250 ml Output Urine Total 175 ml 450 ml # Bowel Movements 1 2 Microbiology Date/Time Source Procedure Growth Status 11/17/16 14:45 Blood Blood Culture - Preliminary NO GROWTH AFTER 24 HOURS Resulted 11/17/16 14:30 Blood Blood Culture - Preliminary NO GROWTH AFTER 24 HOURS Resulted 11/17/16 14:45 Nasal Nares MRSA Culture - Final NO METHICILLIN RESISTANT STAPH AUREUS... Complete 11/17/16 16:18 Urine,Clean Catch Urine Culture - Final NO GROWTH AFTER 48 HOURS Complete 11/18/16 00:00 Sacral Wound Gram Stain - Final Resulted 11/18/16 00:00 Sacral Wound Wound Culture Pending Resulted 11/17/16 14:45 Rectum VRE Culture - Final Enterococcus Faecalis - Vre Complete Laboratory Tests 11/19/16 08:00: Sodium Level [Pending], Potassium Level [Pending], Chloride Level [Pending], Carbon Dioxide Level [Pending], Blood Urea Nitrogen [Pending], Creatinine [ Pending], Estimat Glomerular Filtration Rate [Pending], Glucose Level [Pending] , Calcium Level [Pending] Current Medications Medications (Trade) Dose Ordered Sig/Josh Route PRN Reason Start Time Stop Time Status Last Admin Dose Admin Acetaminophen (Tylenol) 650 mg Q6H PRN GT Prn Headache/Temp > 101 11/18/16 06:00 12/18/16 05:59 Acetaminophen/ Hydrocodone Bitart ([place] 5/325) 1 tab Q12H PRN GT For Pain 11/18/16 06:00 11/25/16 05:59 11/18/16 21:48 Ascorbic Acid (Vitamin C) 500 mg DAILY GT 11/18/16 09:00 12/18/16 08:59 11/19/16 09:25 Calcitriol (Rocatrol) 0.25 mcg EVERY OTHER DAY GT 11/18/16 09:00 12/18/16 08:59 11/18/16 09:00 Carvedilol (Coreg) 6.25 mg EVERY 12 HOURS GT 11/18/16 09:00 12/18/16 08:59 11/19/16 09:25 Clonidine HCl (Catapres) 0.1 mg Q4HR PRN GT PRN FOR SBP>150 11/18/16 07:00 12/18/16 05:59 Dextrose (Dextrose 50%) STAT PRN IV Hypoglycemia 11/18/16 06:15 12/18/16 06:14 11/18/16 06:46 Docusate Sodium (Colace) 100 mg DAILY GT 11/18/16 09:00 12/18/16 08:59 11/18/16 10:02 Enalapril Maleate (Vasotec) 5 mg EVERY 12 HOURS GT 11/18/16 00:00 12/18/16 00:00 11/19/16 09:26 Epoetin Francesco (Procrit (for non ESRD use)) 10,000 units SUN-SUN-SUN SUBQ 11/20/16 21:00 12/20/16 20:59 Furosemide (Lasix) 40 mg DAILY IV 11/19/16 09:00 12/19/16 08:59 11/19/16 09:26 Gabapentin (Neurontin) 300 mg THREE TIMES A DAY GT 11/18/16 09:00 12/18/16 08:59 11/19/16 09:46 Influenza Virus Vaccine (Flu Vaccine) 0.5 ml ONCE ONCE IM 11/18/16 10:00 11/18/16 10:01 UNV Insulin Aspart (NovoLOG) EVERY 6 HOURS SUBQ 11/18/16 07:00 12/18/16 06:59 11/19/16 06:31 Magnesium Hydroxide (Mom) 30 ml QHS PRN GT Constipation 11/18/16 06:00 12/18/16 05:59 Metoprolol Tartrate (Lopressor) 5 mg BID IVP 11/18/16 09:00 12/18/16 08:59 UNV Multivitamins (Multivitamin Hexavitamin) 5 ml DAILY GT 11/18/16 09:00 12/18/16 08:59 11/19/16 09:26 Ondansetron HCl (Zofran) 4 mg Q6H PRN IV Nausea & Vomiting 11/18/16 06:00 12/18/16 05:59 Piperacillin Sod/ Tazobactam Sod 3.375 gm/Dextrose 100 ml @ 25 mls/hr EVERY 8 HOURS IV 11/18/16 14:00 11/23/16 13:59 11/19/16 05:00 Pneumococcal Polyvalent Vaccine (Pneumovax) 0.5 ml ONCE ONCE IM 11/18/16 10:00 11/18/16 10:01 UNV Sodium Phosphate (Fleet's Sodium Phosl Enema) 133 ml DAILY PRN RECTAL Constipation 11/18/16 06:00 12/18/16 05:59 Spironolactone (Aldactone) 25 mg DAILY GT 11/18/16 09:00 12/18/16 08:59 11/19/16 09:26 Vancomycin HCl 1 ea 1 ea DAILY PRN MISC . 11/18/16 13:00 12/18/16 12:59 Vancomycin HCl/ Dextrose (Vancomycin/D5W) 275 ml @ 183.708 mls/hr Q12HR@0500,1700 IVPB 11/19/16 05:00 11/24/16 04:59 11/19/16 05:00 Zinc Sulfate (Zinc Sulfate) 220 mg DAILY GT 11/18/16 09:00 12/18/16 08:59 11/19/16 09:25 BREANNE COHEN Nov 19, 2016 09:59
[2016-11-19 10:17] LABS: ANION GAP 12 (5-15); CALCIUM 7.8 mg/dL (8.6-10.2); CARBON DIOXIDE 30 mEQ/L (20-30); CHLORIDE 93 mEQ/L (98-107); CREATININE 0.7 mg/dL (0.7-1.2); HEMOLYSIS 2; POTASSIUM 3.7 mEQ/L (3.4-4.9); SODIUM 135 mEQ/L (135-145)
[2016-11-19 10:36] LABS: MEAN CORPUSCULAR HEMOGLOBIN 32.2 PG (27.0-31.0); MEAN CORPUSCULAR HGB CONC 34.1 G/DL (32.0-36.0); MEAN CORPUSCULAR VOLUME 94 FL (80-99); MEAN PLATELET VOLUME 13.9 FL (6.5-10.1); PLATELET COUNT 77 K/UL (150-450); RED BLOOD COUNT 2.86 M/UL (4.70-6.10); RED CELL DISTRIBUTION WIDTH 15.3 % (11.6-14.8); WHITE BLOOD COUNT 17.4 K/UL (4.8-10.8)
[2016-11-19 12:00] VITALS: BP 108/80
[2016-11-19 12:21] LABS: ANISOCYTOSIS 1+; BAND NEUTROPHILS % (MANUAL) 0 % (0-8); BASOPHILS % (MANUAL) 0 % (0-2); EOSINOPHILS % (MANUAL) 0 % (0-3); LYMPHOCYTES % (MANUAL) 1 % (20-45); NEUTROPHILS % (MANUAL) 95 % (45-75); PLATELET ESTIMATE DECREASED; PLATELET MORPHOLOGY NORMAL; TOTAL CELLS COUNTED 100
[2016-11-19 12:22] LABS: HYPOCHROMASIA 1+
--- NOTE | 2016-11-19 13:49 | Infectious Diseases Prog Note ---
Assessment/Plan Assessment/Plan A: Pneumonia VDRF VRE colonization CHF PAF DM type 2 Anemia P: continue Zosyn Discontinue Vancomycin will f/u cultures Subjective ROS Limited/Unobtainable: Yes Allergies: Coded Allergies: No Known Allergies (Unverified , 11/17/16) Objective Vital Signs Last 24 Hour Vital Signs Date Time Temp Pulse Resp B/P Pulse Ox O2 Delivery O2 Flow Rate FiO2 11/19/16 13:27 78 21 50 11/19/16 11:30 82 17 50 11/19/16 09:26 114/82 11/19/16 09:25 88 114/82 11/19/16 09:20 77 22 50 11/19/16 08:00 96 11/19/16 08:00 98.1 100 20 129/98 98 Mechanical Ventilator 50 11/19/16 08:00 50 11/19/16 07:23 88 22 50 11/19/16 05:08 85 20 60 11/19/16 04:00 97.6 89 17 114/82 100 Mechanical Ventilator 50 11/19/16 04:00 50 11/19/16 03:37 85 11/19/16 02:53 91 19 60 11/19/16 01:00 89 18 60 11/19/16 00:00 50 11/19/16 00:00 97.3 91 17 115/94 100 Mechanical Ventilator 50 11/18/16 23:01 94 15 60 11/18/16 22:50 98.0 11/18/16 21:39 130/85 11/18/16 21:39 84 130/85 11/18/16 20:37 84 29 60 11/18/16 20:00 50 11/18/16 20:00 98.0 85 15 130/85 100 Mechanical Ventilator 50 11/18/16 19:04 85 11/18/16 18:41 89 21 60 11/18/16 17:21 94 18 60 11/18/16 16:40 90 11/18/16 16:00 97.5 77 13 122/94 100 Mechanical Ventilator 50 11/18/16 16:00 89 11/18/16 16:00 50 11/18/16 15:07 85 16 60 Height (Feet): 5 Height (Inches): 4.00 Weight (Pounds): 175 General Appearance: no acute distress HEENT: status post trach Respiratory/Chest: rhonchi - bilaterally, other - on ventilator Cardiovascular: normal rate Abdomen: soft, non tender, other - GT feeding Extremities: other - generalized edema Skin: ulcers Neurologic/Psychiatric: other - sleeping Microbiology Date/Time Source Procedure Growth Status 11/17/16 14:45 Blood Blood Culture - Preliminary NO GROWTH AFTER 24 HOURS Resulted 11/17/16 14:30 Blood Blood Culture - Preliminary NO GROWTH AFTER 24 HOURS Resulted 11/17/16 14:45 Nasal Nares MRSA Culture - Final NO METHICILLIN RESISTANT STAPH AUREUS... Complete 11/17/16 16:18 Urine,Clean Catch Urine Culture - Final NO GROWTH AFTER 48 HOURS Complete 11/18/16 00:00 Sacral Wound Gram Stain - Final Resulted 11/18/16 00:00 Wound Culture - Preliminary Gram Negative Bacillus 1 Gram Negative Bacillus 2 Resulted 11/17/16 14:45 Rectum VRE Culture - Final Enterococcus Faecalis - Vre Complete Laboratory Tests Test 11/19/16 09:45 White Blood Count 17.4 K/UL (4.8-10.8) H Red Blood Count 2.86 M/UL (4.70-6.10) L Hemoglobin 9.2 G/DL (14.2-18.0) L Hematocrit 27.0 % (42.0-52.0) L Mean Corpuscular Volume 94 FL (80-99) Mean Corpuscular Hemoglobin 32.2 PG (27.0-31.0) H Mean Corpuscular Hemoglobin Concent 34.1 G/DL (32.0-36.0) Red Cell Distribution Width 15.3 % (11.6-14.8) H Platelet Count 77 K/UL (150-450) L Mean Platelet Volume 13.9 FL (6.5-10.1) H Neutrophils (%) (Auto) % (45.0-75.0) Lymphocytes (%) (Auto) % (20.0-45.0) Monocytes (%) (Auto) % (1.0-10.0) Eosinophils (%) (Auto) % (0.0-3.0) Basophils (%) (Auto) % (0.0-2.0) Differential Total Cells Counted 100 Neutrophils % (Manual) 95 % (45-75) H Lymphocytes % (Manual) 1 % (20-45) L Monocytes % (Manual) 4 % (1-10) Eosinophils % (Manual) 0 % (0-3) Basophils % (Manual) 0 % (0-2) Band Neutrophils 0 % (0-8) Platelet Estimate Decreased L Platelet Morphology Normal Hypochromasia 1+ Anisocytosis 1+ Sodium Level 135 mEQ/L (135-145) Potassium Level 3.7 mEQ/L (3.4-4.9) Chloride Level 93 mEQ/L (98-107) L Carbon Dioxide Level 30 mEQ/L (20-30) Anion Gap 12 (5-15) Blood Urea Nitrogen 43 mg/dL (7-23) H Creatinine 0.7 mg/dL (0.7-1.2) Estimat Glomerular Filtration Rate mL/min (>60) Glucose Level 134 mg/dL (74-106) H Calcium Level 7.8 mg/dL (8.6-10.2) L Current Medications Medications (Trade) Dose Ordered Sig/Josh Route PRN Reason Start Time Stop Time Status Last Admin Dose Admin Acetaminophen (Tylenol) 650 mg Q6H PRN GT Prn Headache/Temp > 101 11/18/16 06:00 12/18/16 05:59 Acetaminophen/ Hydrocodone Bitart ([place] 5/325) 1 tab Q12H PRN GT For Pain 11/18/16 06:00 11/25/16 05:59 11/18/16 21:48 Ascorbic Acid (Vitamin C) 500 mg DAILY GT 11/18/16 09:00 12/18/16 08:59 11/19/16 09:25 Calcitriol (Rocatrol) 0.25 mcg EVERY OTHER DAY GT 11/18/16 09:00 12/18/16 08:59 11/18/16 09:00 Carvedilol (Coreg) 6.25 mg EVERY 12 HOURS GT 11/18/16 09:00 12/18/16 08:59 11/19/16 09:25 Clonidine HCl (Catapres) 0.1 mg Q4HR PRN GT PRN FOR SBP>150 11/18/16 07:00 12/18/16 05:59 Dextrose (Dextrose 50%) STAT PRN IV Hypoglycemia 11/18/16 06:15 12/18/16 06:14 11/18/16 06:46 Docusate Sodium (Colace) 100 mg DAILY GT 11/18/16 09:00 12/18/16 08:59 11/18/16 10:02 Enalapril Maleate (Vasotec) 5 mg EVERY 12 HOURS GT 11/18/16 00:00 12/18/16 00:00 11/19/16 09:26 Epoetin Francesco (Procrit (for non ESRD use)) 10,000 units MON-WED-SUN SUBQ 11/20/16 21:00 12/20/16 20:59 Furosemide (Lasix) 40 mg DAILY IV 11/19/16 09:00 12/19/16 08:59 11/19/16 09:26 Gabapentin (Neurontin) 300 mg THREE TIMES A DAY GT 11/18/16 09:00 12/18/16 08:59 11/19/16 12:32 Influenza Virus Vaccine (Flu Vaccine) 0.5 ml ONCE ONCE IM 11/18/16 10:00 11/18/16 10:01 UNV Insulin Aspart (NovoLOG) EVERY 6 HOURS SUBQ 11/18/16 07:00 12/18/16 06:59 11/19/16 12:32 Magnesium Hydroxide (Mom) 30 ml QHS PRN GT Constipation 11/18/16 06:00 12/18/16 05:59 Metoprolol Tartrate (Lopressor) 5 mg BID IVP 11/18/16 09:00 12/18/16 08:59 UNV Multivitamins (Multivitamin Hexavitamin) 5 ml DAILY GT 11/18/16 09:00 12/18/16 08:59 11/19/16 09:26 Ondansetron HCl (Zofran) 4 mg Q6H PRN IV Nausea & Vomiting 11/18/16 06:00 12/18/16 05:59 Piperacillin Sod/ Tazobactam Sod 3.375 gm/Dextrose 100 ml @ 25 mls/hr EVERY 8 HOURS IV 11/18/16 14:00 11/23/16 13:59 11/19/16 13:17 Pneumococcal Polyvalent Vaccine (Pneumovax) 0.5 ml ONCE ONCE IM 11/18/16 10:00 11/18/16 10:01 UNV Sodium Phosphate (Fleet's Sodium Phosl Enema) 133 ml DAILY PRN RECTAL Constipation 11/18/16 06:00 12/18/16 05:59 Spironolactone (Aldactone) 25 mg DAILY GT 11/18/16 09:00 12/18/16 08:59 11/19/16 09:26 Vancomycin HCl 1 ea 1 ea DAILY PRN MISC . 11/18/16 13:00 12/18/16 12:59 Vancomycin HCl/ Dextrose (Vancomycin/D5W) 275 ml @ 183.708 mls/hr Q12HR@0500,1700 IVPB 11/19/16 05:00 11/24/16 04:59 11/19/16 05:00 Zinc Sulfate (Zinc Sulfate) 220 mg DAILY GT 11/18/16 09:00 12/18/16 08:59 11/19/16 09:25 TROY PAYTON Nov 19, 2016 13:49
[2016-11-19 16:00] VITALS: BP 116/78
[2016-11-19] MEDS ORDERED: NS 275ml ONE (16:21)
[2016-11-19] MEDS ORDERED: NS Irrig 1000ml ONE (16:21)
--- NOTE | 2016-11-19 16:36 | Wound Care Consultation ---
Wound Assessment Wound Assessment #1: Wound Present on Admission: Yes New Wound: No Status Change of Wound: No Wound Location Body Site Modif: mid Wound Location Body Site: sacral Wound Type: pressure ulcer Karen Test: Does not Karen Pressure Ulcer Stage: IV/unstageable Wound Thickness: Full Thickness Wound Length: 8.0 Wound Width: 6.0 Wound Depth: utd Percent of Wound Bed Yellow/Wh: 80 Percent of Wound Black/Brown: 20 Wound Drainage Description: Serosanguineous Wound Drainage Amount: Moderate Wound Drainage Odor: None/Absent Tissue Surrounding Wound: Macerated Wound General Appearance: Blackened, Necrotic Wound Assessment #2: Wound Number: #2 Wound Present on Admission: Yes New Wound: No Status Change of Wound: No Wound Location Body Site Modif: right Wound Location Body Site: heel Wound Type: pressure ulcer Karen Test: Does not Karen Pressure Ulcer Stage: III Edema Degree: 4+ marked deep indentation Wound Thickness: Full Thickness Wound Length: 5.5 Wound Width: 5.5 Wound Depth: 0.3 Percent of Wound [place]/Red: 100 Wound Drainage Description: Serosanguineous Wound Drainage Amount: Moderate Wound Drainage Odor: None/Absent Tissue Surrounding Wound: Macerated Wound General Appearance: Reddened, Well Approximated Wound Assessment #3: Wound Number: #3 Wound Present on Admission: Yes New Wound: No Status Change of Wound: No Wound Location Body Site Modif: right, lower, lateral Wound Location Body Site: leg Wound Type: pressure ulcer Karen Test: Does not Karen Pressure Ulcer Stage: IV/unstageable Edema Degree: 4+ marked deep indentation Wound Thickness: Full Thickness Wound Length: 2.0 Wound Width: 1.5 Wound Depth: utd Percent of Wound [place]/Red: 30 Percent of Wound Bed Yellow/Wh: 70 Wound Drainage Description: Serosanguineous Wound Drainage Amount: Scant Wound Drainage Odor: None/Absent Tissue Surrounding Wound: Erythemic Wound General Appearance: Draining Wound Assessment #4: Wound Number: #4 Wound Present on Admission: Yes New Wound: No Status Change of Wound: No Wound Location Body Site: perineal area Wound Type: chemical burn Karen Test: Does not Karen Wound Drainage Amount: None Wound Drainage Odor: None/Absent Tissue Surrounding Wound: Erythemic Wound General Appearance: Reddened Wound Comment #1 sacral stage IV/unstageable pressure ulcer #2 Right heel stage III pressure ulcer #3 Right lateral lower leg IV/unstageable pressure ulcer #4 Perineal chemical burn Recommendation -Cleanse sacral area with saline pat dry apply Santyl ointment to wound bed apply triad to periwound area cover with Biatain silicone daily and PRN soiled/ dislodged -Cleanse Right lateral lower leg with saline pat dry apply Therahoney gel to wound bed cover with Biatain silicone drg daily and PRN soiled/dislodged -Cleanse right heel with saline pat dry apply hydrogel apply calcium alginate cover with 4x4 wrap with Kerlix daily and PRN soiled/dislodged -Keep clean and dry -Turn and reposition -Optimize nutrition -Low air loss overlay mattress -Offload both heels -Heel protector on both heels -Assess and f/u accordingly for any changes ANA CALERO RN Nov 19, 2016 16:36
[2016-11-19 20:00] VITALS: BP 119/82
[2016-11-19] MEDS: Metoprolol 25mg tab GT SCH (20:11)
[2016-11-20] VITALS: BP 143/98
[2016-11-20 04:00] VITALS: BP 119/89
[2016-11-20] MEDS: Norco 5mg/325mg tab GT PRN (04:55)
[2016-11-20] MEDS: NovoLOG Insulin Flexpen SUBQ SCH ×4 (05:41→19:55)
[2016-11-20 07:23] LABS: ALANINE AMINOTRANSFERASE 15 U/L (3-41); ALBUMIN/GLOBULIN RATIO 0.6 (1.0-2.7); ANION GAP 13 (5-15); ASPARTATE AMINO TRANSFERASE 20 U/L (5-40); CALCIUM 7.7 mg/dL (8.6-10.2); CARBON DIOXIDE 31 mEQ/L (20-30); CHLORIDE 94 mEQ/L (98-107); CREATININE 0.7 mg/dL (0.7-1.2); HEMOLYSIS 9; POTASSIUM 3.7 mEQ/L (3.4-4.9); SODIUM 138 mEQ/L (135-145)
[2016-11-20 08:00] VITALS: BP 127/96
[2016-11-20] MEDS: Gabapentin 300 MG/6 ML Soln GT SCH ×3 (09:00→19:53)
--- NOTE | 2016-11-20 09:21 | Pulmonology Progress Note ---
Assessment/Plan Assessment/Plan IMPRESSION: 1. Paroxysmal atrial fibrillation with rapid ventricular response. intermittent atrial flutter 2. Acute on chronic systolic congestive heart failure. 3. Sepsis syndrome. 4. leukocytosis persistent 5. Ventilator-dependent respiratory failure. 6. thrombocytopenia 7. Severe cardiomyopathy. 8. anemia 9. acute on chronic encephalopathy 10. GT 11. Aspiration PLAN: 1. Ventilator management as is; no wean for now 2. Panculture. culture noted 3. Empiric antibiotics. ID evaluation 4. stabilize rhythm per cards 5. monitor acid-based status. 6. beta-tin and angiotensin-converting enzyme inhibitor per cardiology. 7. resumed SNF meds 8. resumed feeds 9. Cardiac monitoring needed 10. transfer back to SNF once cleared by cards 11. still with elevated WBC; cannot dc 12. rate control impression, plan, and exam edited and reviewed in detail care discussed with RN Subjective ROS Limited/Unobtainable: Yes Allergies: Coded Allergies: No Known Allergies (Unverified , 11/17/16) Subjective withdrawn overall care noted tele reviewed care discussed Objective Last 24 Hour Vital Signs Date Time Temp Pulse Resp B/P Pulse Ox O2 Delivery O2 Flow Rate FiO2 11/20/16 08:44 84 16 50 11/20/16 06:43 85 14 50 11/20/16 05:54 97.8 11/20/16 05:06 95 13 50 11/20/16 04:00 87 11/20/16 04:00 50 11/20/16 04:00 97.5 51 16 119/89 93 Mechanical Ventilator 50 11/20/16 03:01 91 15 50 11/20/16 01:19 92 14 50 11/20/16 00:00 87 11/20/16 00:00 50 11/20/16 00:00 97.8 87 18 143/98 95 Mechanical Ventilator 50 11/19/16 23:18 95 28 50 11/19/16 21:06 92 23 50 11/19/16 20:12 88 120/75 11/19/16 20:11 88 120/75 11/19/16 20:11 120/75 11/19/16 20:00 50 11/19/16 20:00 97.5 81 18 119/82 95 Mechanical Ventilator 50 11/19/16 19:30 87 11/19/16 19:13 56 17 50 11/19/16 16:54 86 15 50 11/19/16 16:00 90 11/19/16 16:00 97.7 87 18 116/78 99 Mechanical Ventilator 50 11/19/16 16:00 50 11/19/16 15:29 83 21 50 11/19/16 13:27 78 21 50 11/19/16 12:00 97.0 91 21 108/80 98 Mechanical Ventilator 50 11/19/16 12:00 50 11/19/16 11:30 82 17 50 11/19/16 09:26 114/82 11/19/16 09:25 88 114/82 11/19/16 09:20 77 22 50 Intake and Output 11/19/16 11/20/16 19:00 07:00 Intake Total 815 ml 550 ml Output Total 400 ml 1600 ml Balance 415 ml -1050 ml Free Water 150 ml IV Total 125 ml 100 ml Tube Feeding 540 ml 450 ml Output Urine Total 400 ml 1600 ml # Bowel Movements 1 1 Objective WDWN NAD trach clear breath sounds bilaterally without rhonchi or wheeze S1S2 iRRR without MRG NABS nontender no HSM; GT no CC; noted edema nonfocal withdrawn Microbiology Date/Time Source Procedure Growth Status 11/17/16 14:45 Blood Blood Culture - Preliminary NO GROWTH AFTER 48 HOURS Resulted 11/17/16 14:30 Blood Blood Culture - Preliminary NO GROWTH AFTER 48 HOURS Resulted 11/19/16 08:00 Sputum Gram Stain Pending Resulted 11/19/16 08:00 Sputum Culture - Preliminary Gram Negative Bacillus 1 Resulted 11/17/16 14:45 Nasal Nares MRSA Culture - Final NO METHICILLIN RESISTANT STAPH AUREUS... Complete 11/17/16 16:18 Urine,Clean Catch Urine Culture - Final NO GROWTH AFTER 48 HOURS Complete 11/18/16 00:00 Sacral Wound Gram Stain - Final Resulted 11/18/16 00:00 Wound Culture - Preliminary Gram Negative Bacillus 1 Gram Negative Bacillus 2 Resulted 11/17/16 14:45 Rectum VRE Culture - Final Enterococcus Faecalis - Vre Complete Laboratory Tests 11/19/16 09:45: White Blood Count 17.4H, Red Blood Count 2.86L, Hemoglobin 9.2L, Hematocrit 27.0L, Mean Corpuscular Volume 94, Mean Corpuscular Hemoglobin 32.2H, Mean Corpuscular Hemoglobin Concent 34.1, Red Cell Distribution Width 15.3H, Platelet Count 77L, Mean Platelet Volume 13.9H, Neutrophils (%) (Auto) , Lymphocytes (%) (Auto) , Monocytes (%) (Auto) , Eosinophils (%) (Auto) , Basophils (%) (Auto) , Differential Total Cells Counted 100, Neutrophils % ( Manual) 95H, Lymphocytes % (Manual) 1L, Monocytes % (Manual) 4, Eosinophils % ( Manual) 0, Basophils % (Manual) 0, Band Neutrophils 0, Platelet Estimate DecreasedL, Platelet Morphology Normal, Hypochromasia 1+, Anisocytosis 1+, Sodium Level 135, Potassium Level 3.7, Chloride Level 93L, Carbon Dioxide Level 30, Anion Gap 12, Blood Urea Nitrogen 43H, Creatinine 0.7, Estimat Glomerular Filtration Rate , Glucose Level 134H, Calcium Level 7.8L 11/20/16 05:00: Sodium Level 138, Potassium Level 3.7, Chloride Level 94L, Carbon Dioxide Level 31H, Anion Gap 13, Blood Urea Nitrogen 45H, Creatinine 0.7, Estimat Glomerular Filtration Rate , Glucose Level 90, Calcium Level 7.7L, Magnesium Level 1.7, Total Bilirubin 0.6, Aspartate Amino Transf (AST/SGOT) 20, Alanine Aminotransferase (ALT/SGPT) 15, Alkaline Phosphatase 132H, Total Protein 5.0L, Albumin 1.9L, Globulin 3.1, Albumin/Globulin Ratio 0.6L Current Medications Medications (Trade) Dose Ordered Sig/Josh Route PRN Reason Start Time Stop Time Status Last Admin Dose Admin Acetaminophen (Tylenol) 650 mg Q6H PRN GT Prn Headache/Temp > 101 11/18/16 06:00 12/18/16 05:59 Acetaminophen/ Hydrocodone Bitart ([place] 5/325) 1 tab Q12H PRN GT For Pain 11/18/16 06:00 11/25/16 05:59 11/20/16 04:55 Ascorbic Acid (Vitamin C) 500 mg DAILY GT 11/18/16 09:00 12/18/16 08:59 11/19/16 09:25 Calcitriol (Rocatrol) 0.25 mcg EVERY OTHER DAY GT 11/18/16 09:00 12/18/16 08:59 11/18/16 09:00 Carvedilol (Coreg) 6.25 mg EVERY 12 HOURS GT 11/18/16 09:00 12/18/16 08:59 11/19/16 20:12 Clonidine HCl (Catapres) 0.1 mg Q4HR PRN GT PRN FOR SBP>150 11/18/16 07:00 12/18/16 05:59 Collagenase (Santyl) 1 applic DAILY TOPIC 11/20/16 09:00 12/20/16 08:59 Dextrose (Dextrose 50%) STAT PRN IV Hypoglycemia 11/18/16 06:15 12/18/16 06:14 11/18/16 06:46 Docusate Sodium (Colace) 100 mg DAILY GT 11/18/16 09:00 12/18/16 08:59 11/18/16 10:02 Enalapril Maleate (Vasotec) 5 mg EVERY 12 HOURS GT 11/18/16 00:00 12/18/16 00:00 11/19/16 20:11 Epoetin Francesco (Procrit (for non ESRD use)) 10,000 units SUN-SUN-SUN SUBQ 11/20/16 21:00 12/20/16 20:59 Furosemide (Lasix) 40 mg DAILY IV 11/19/16 09:00 12/19/16 08:59 11/19/16 09:26 Gabapentin (Neurontin) 300 mg THREE TIMES A DAY GT 11/18/16 09:00 12/18/16 08:59 11/19/16 17:50 Influenza Virus Vaccine (Flu Vaccine) 0.5 ml ONCE ONCE IM 11/18/16 10:00 11/18/16 10:01 UNV Insulin Aspart (NovoLOG) EVERY 6 HOURS SUBQ 11/18/16 07:00 12/18/16 06:59 11/19/16 17:55 Magnesium Hydroxide (Mom) 30 ml QHS PRN GT Constipation 11/18/16 06:00 12/18/16 05:59 Metoprolol Tartrate (Lopressor) 25 mg Q12HR GT 11/19/16 21:00 12/19/16 20:59 11/19/16 20:11 Multivitamins 5 ml 5 ml DAILY GT 11/18/16 09:00 12/18/16 08:59 11/19/16 09:26 Ondansetron HCl (Zofran) 4 mg Q6H PRN IV Nausea & Vomiting 11/18/16 06:00 12/18/16 05:59 Piperacillin Sod/ Tazobactam Sod/ Dextrose (Zosyn/D5W) 100 ml @ 25 mls/hr EVERY 8 HOURS IV 11/18/16 14:00 11/23/16 13:59 11/20/16 05:00 Pneumococcal Polyvalent Vaccine (Pneumovax) 0.5 ml ONCE ONCE IM 11/18/16 10:00 11/18/16 10:01 UNV Sodium Phosphate (Fleet's Sodium Phosl Enema) 133 ml DAILY PRN RECTAL Constipation 11/18/16 06:00 12/18/16 05:59 Spironolactone (Aldactone) 25 mg DAILY GT 11/18/16 09:00 12/18/16 08:59 11/19/16 09:26 Zinc Sulfate (Zinc Sulfate) 220 mg DAILY GT 11/18/16 09:00 12/18/16 08:59 11/19/16 09:25 BREANNE COHEN Nov 20, 2016 09:21
--- NOTE | 2016-11-20 10:05 | Infectious Diseases Prog Note ---
Assessment/Plan Assessment/Plan A: Pneumonia VDRF VRE colonization CHF PAF DM type 2 Anemia P: continue Zosyn will f/u cultures Subjective ROS Limited/Unobtainable: Yes Constitutional: Reports: no symptoms Allergies: Coded Allergies: No Known Allergies (Unverified , 11/17/16) Objective Vital Signs Last 24 Hour Vital Signs Date Time Temp Pulse Resp B/P Pulse Ox O2 Delivery O2 Flow Rate FiO2 11/20/16 08:44 84 16 50 11/20/16 08:00 97.0 87 22 127/96 100 Mechanical Ventilator 45 11/20/16 06:43 85 14 50 11/20/16 05:54 97.8 11/20/16 05:06 95 13 50 11/20/16 04:00 87 11/20/16 04:00 50 11/20/16 04:00 97.5 51 16 119/89 93 Mechanical Ventilator 50 11/20/16 03:01 91 15 50 11/20/16 01:19 92 14 50 11/20/16 00:00 87 11/20/16 00:00 50 11/20/16 00:00 97.8 87 18 143/98 95 Mechanical Ventilator 50 11/19/16 23:18 95 28 50 11/19/16 21:06 92 23 50 11/19/16 20:12 88 120/75 11/19/16 20:11 88 120/75 11/19/16 20:11 120/75 11/19/16 20:00 50 11/19/16 20:00 97.5 81 18 119/82 95 Mechanical Ventilator 50 11/19/16 19:30 87 11/19/16 19:13 56 17 50 11/19/16 16:54 86 15 50 11/19/16 16:00 90 11/19/16 16:00 97.7 87 18 116/78 99 Mechanical Ventilator 50 11/19/16 16:00 50 11/19/16 15:29 83 21 50 11/19/16 13:27 78 21 50 11/19/16 12:00 97.0 91 21 108/80 98 Mechanical Ventilator 50 11/19/16 12:00 50 11/19/16 11:30 82 17 50 Height (Feet): 5 Height (Inches): 4.00 Weight (Pounds): 175 General Appearance: no acute distress HEENT: status post trach Respiratory/Chest: rhonchi - bilaterally, other - on ventilator Cardiovascular: normal rate Abdomen: soft, non tender, other - GT feeding Extremities: other Neurologic/Psychiatric: unresponsiveness Microbiology Date/Time Source Procedure Growth Status 11/17/16 14:45 Blood Blood Culture - Preliminary NO GROWTH AFTER 48 HOURS Resulted 11/17/16 14:30 Blood Blood Culture - Preliminary NO GROWTH AFTER 48 HOURS Resulted 11/19/16 08:00 Sputum Gram Stain Pending Resulted 11/19/16 08:00 Sputum Culture - Preliminary Gram Negative Bacillus 1 Resulted 11/17/16 14:45 Nasal Nares MRSA Culture - Final NO METHICILLIN RESISTANT STAPH AUREUS... Complete 11/17/16 16:18 Urine,Clean Catch Urine Culture - Final NO GROWTH AFTER 48 HOURS Complete 11/18/16 00:00 Sacral Wound Gram Stain - Final Resulted 11/18/16 00:00 Wound Culture - Preliminary Gram Negative Bacillus 1 Gram Negative Bacillus 2 Resulted 11/17/16 14:45 Rectum VRE Culture - Final Enterococcus Faecalis - Vre Complete Laboratory Tests Test 11/20/16 05:00 Sodium Level 138 mEQ/L (135-145) Potassium Level 3.7 mEQ/L (3.4-4.9) Chloride Level 94 mEQ/L (98-107) L Carbon Dioxide Level 31 mEQ/L (20-30) H Anion Gap 13 (5-15) Blood Urea Nitrogen 45 mg/dL (7-23) H Creatinine 0.7 mg/dL (0.7-1.2) Estimat Glomerular Filtration Rate mL/min (>60) Glucose Level 90 mg/dL (74-106) Calcium Level 7.7 mg/dL (8.6-10.2) L Magnesium Level 1.7 mg/dL (1.7-2.5) Total Bilirubin 0.6 mg/dL (0.0-1.2) Aspartate Amino Transf (AST/SGOT) 20 U/L (5-40) Alanine Aminotransferase (ALT/SGPT) 15 U/L (3-41) Alkaline Phosphatase 132 U/L (40-129) H Total Protein 5.0 g/dL (6.6-8.7) L Albumin 1.9 g/dL (3.5-5.2) L Globulin 3.1 g/dL Albumin/Globulin Ratio 0.6 (1.0-2.7) L Current Medications Medications (Trade) Dose Ordered Sig/Josh Route PRN Reason Start Time Stop Time Status Last Admin Dose Admin Acetaminophen (Tylenol) 650 mg Q6H PRN GT Prn Headache/Temp > 101 11/18/16 06:00 12/18/16 05:59 Acetaminophen/ Hydrocodone Bitart ([place] 5/325) 1 tab Q12H PRN GT For Pain 11/18/16 06:00 11/25/16 05:59 11/20/16 04:55 Ascorbic Acid (Vitamin C) 500 mg DAILY GT 11/18/16 09:00 12/18/16 08:59 11/19/16 09:25 Calcitriol (Rocatrol) 0.25 mcg EVERY OTHER DAY GT 11/18/16 09:00 12/18/16 08:59 11/18/16 09:00 Carvedilol (Coreg) 6.25 mg EVERY 12 HOURS GT 11/18/16 09:00 12/18/16 08:59 11/19/16 20:12 Clonidine HCl (Catapres) 0.1 mg Q4HR PRN GT PRN FOR SBP>150 11/18/16 07:00 12/18/16 05:59 Collagenase (Santyl) 1 applic DAILY TOPIC 11/20/16 09:00 12/20/16 08:59 Dextrose (Dextrose 50%) STAT PRN IV Hypoglycemia 11/18/16 06:15 12/18/16 06:14 11/18/16 06:46 Docusate Sodium (Colace) 100 mg DAILY GT 11/18/16 09:00 12/18/16 08:59 11/18/16 10:02 Enalapril Maleate (Vasotec) 5 mg EVERY 12 HOURS GT 11/18/16 00:00 12/18/16 00:00 11/19/16 20:11 Epoetin Francesco (Procrit (for non ESRD use)) 10,000 units SUN-SUN-SUN SUBQ 11/20/16 21:00 12/20/16 20:59 Furosemide (Lasix) 40 mg DAILY IV 11/19/16 09:00 12/19/16 08:59 11/19/16 09:26 Gabapentin (Neurontin) 300 mg THREE TIMES A DAY GT 11/18/16 09:00 12/18/16 08:59 11/19/16 17:50 Influenza Virus Vaccine (Flu Vaccine) 0.5 ml ONCE ONCE IM 11/18/16 10:00 11/18/16 10:01 UNV Insulin Aspart (NovoLOG) EVERY 6 HOURS SUBQ 11/18/16 07:00 12/18/16 06:59 11/19/16 17:55 Magnesium Hydroxide (Mom) 30 ml QHS PRN GT Constipation 11/18/16 06:00 12/18/16 05:59 Metoprolol Tartrate (Lopressor) 25 mg Q12HR GT 11/19/16 21:00 12/19/16 20:59 11/19/16 20:11 Multivitamins 5 ml 5 ml DAILY GT 11/18/16 09:00 12/18/16 08:59 11/19/16 09:26 Ondansetron HCl (Zofran) 4 mg Q6H PRN IV Nausea & Vomiting 11/18/16 06:00 12/18/16 05:59 Piperacillin Sod/ Tazobactam Sod/ Dextrose (Zosyn/D5W) 100 ml @ 25 mls/hr EVERY 8 HOURS IV 11/18/16 14:00 11/23/16 13:59 11/20/16 05:00 Pneumococcal Polyvalent Vaccine (Pneumovax) 0.5 ml ONCE ONCE IM 11/18/16 10:00 11/18/16 10:01 UNV Sodium Phosphate (Fleet's Sodium Phosl Enema) 133 ml DAILY PRN RECTAL Constipation 11/18/16 06:00 12/18/16 05:59 Spironolactone (Aldactone) 25 mg DAILY GT 11/18/16 09:00 12/18/16 08:59 11/19/16 09:26 Zinc Sulfate (Zinc Sulfate) 220 mg DAILY GT 11/18/16 09:00 12/18/16 08:59 11/19/16 09:25 TROY PAYTON Nov 20, 2016 10:05
[2016-11-20] MEDS: Calcitriol 0.25mcg Cap GT SCH (10:07)
[2016-11-20] MEDS: Docusate 100mg tablet GT SCH (10:07)
[2016-11-20] MEDS: Multivitamin 5ml Liquid GT SCH (10:07)
[2016-11-20] MEDS: Ascorbic Acid 500mg tab GT SCH (10:07)
[2016-11-20] MEDS: Zinc Sulfate 220mg cap GT SCH (10:07)
[2016-11-20] MEDS: Spironolactone 25mg tab GT SCH (10:07)
[2016-11-20] MEDS: Metoprolol 25mg tab GT SCH ×2 (10:08→20:56)
[2016-11-20] MEDS: Carvedilol 6.25mg Tab GT SCH ×2 (10:08→20:56)
[2016-11-20] MEDS: Enalapril 5mg tab GT SCH ×2 (10:08→20:57)
[2016-11-20 12:00] VITALS: BP 116/91
--- NOTE | 2016-11-20 14:42 | Diagnostic Imaging Report ---
APPROVED REPORT CPT Code: 57848 Present Symptoms Lower Extremity Pain: Bilateral Lower Extremity Edema: Bilateral Risk Factors Cardiac Disease BILATERAL: Imaging reveals a patent deep venous system bilaterally. There is no evidence of thrombus within the femoral, popliteal or tibial segments. The greater saphenous veins are also within normal limits. Doppler indicates normal spontaneous flow within these segments.
[2016-11-20 16:00] VITALS: BP 166/105
--- NOTE | 2016-11-20 18:11 | General Progress Note ---
Assessment/Plan Problem List: (1) CKD (chronic kidney disease) stage 2, GFR 60-89 ml/min ICD Codes: N18.2 - Chronic kidney disease, stage 2 (mild) SNOMED: 004046038 (2) Tachy-boris syndrome ICD Codes: I49.5 - Sick sinus syndrome SNOMED: 55981675 (3) Chronic respiratory failure ICD Codes: J96.10 - Chronic respiratory failure, unspecified whether with hypoxia or hypercapnia SNOMED: 42772011 (4) CHF (congestive heart failure) ICD Codes: I50.9 - Heart failure, unspecified SNOMED: 55466698 Qualifiers: Qualified Codes: I50.9 - Heart failure, unspecified (5) Pneumonia ICD Codes: J18.9 - Pneumonia, unspecified organism SNOMED: 962891243 Qualifiers: Qualified Codes: J18.9 - Pneumonia, unspecified organism (6) Sepsis ICD Codes: A41.9 - Sepsis, unspecified organism SNOMED: 22090854 Qualifiers: Qualified Codes: A41.9 - Sepsis, unspecified organism (7) Atrial fibrillation with rapid ventricular response ICD Codes: I48.91 - Unspecified atrial fibrillation SNOMED: 773200998681996 Status: stable Assessment/Plan vent support resp rx sucitoning iv abx per id monitor h/h transfuse as neded monitor for bleeding follow up cultures iv diuresis monitor cxr and lytes tele poor prognosis Subjective ROS Limited/Unobtainable: No Constitutional: Reports: malaise, weakness HEENT: Reports: no symptoms Cardiovascular: Reports: edema, palpitations Respiratory: Reports: cough, shortness of breath, sputum Gastrointestinal/Abdominal: Reports: difficulty swallowing Genitourinary: Reports: no symptoms Neurologic/Psychiatric: Reports: pre-existing deficit Endocrine: Reports: no symptoms Hematologic/Lymphatic: Reports: anemia Allergies: Coded Allergies: No Known Allergies (Unverified , 11/17/16) All Systems: reviewed and negative except above Subjective no overnite events. denies chest pain minimal sob. on iv abx and lasix. pulm, cards and id noted. Objective Last 24 Hour Vital Signs Date Time Temp Pulse Resp B/P Pulse Ox O2 Delivery O2 Flow Rate FiO2 11/20/16 17:12 75 18 30 11/20/16 16:00 96.8 83 15 166/105 100 11/20/16 15:41 83 22 35 11/20/16 13:16 79 17 45 11/20/16 12:00 50 11/20/16 12:00 86 11/20/16 12:00 97.7 79 17 116/91 100 Mechanical Ventilator 45 11/20/16 11:03 75 16 45 11/20/16 10:08 84 127/90 11/20/16 10:08 127/90 11/20/16 10:08 86 127/90 11/20/16 08:44 84 16 50 11/20/16 08:00 85 11/20/16 08:00 97.0 87 22 127/96 100 Mechanical Ventilator 45 11/20/16 08:00 50 11/20/16 06:43 85 14 50 11/20/16 05:54 97.8 11/20/16 05:06 95 13 50 11/20/16 04:00 87 11/20/16 04:00 50 11/20/16 04:00 97.5 51 16 119/89 93 Mechanical Ventilator 50 11/20/16 03:01 91 15 50 11/20/16 01:19 92 14 50 11/20/16 00:00 87 11/20/16 00:00 50 11/20/16 00:00 97.8 87 18 143/98 95 Mechanical Ventilator 50 11/19/16 23:18 95 28 50 11/19/16 21:06 92 23 50 11/19/16 20:12 88 120/75 11/19/16 20:11 88 120/75 11/19/16 20:11 120/75 11/19/16 20:00 50 11/19/16 20:00 97.5 81 18 119/82 95 Mechanical Ventilator 50 11/19/16 19:30 87 11/19/16 19:13 56 17 50 Intake and Output 11/19/16 11/20/16 19:00 07:00 Intake Total 815 ml 645 ml Output Total 400 ml 1700 ml Balance 415 ml -1055 ml Free Water 150 ml IV Total 125 ml 150 ml Tube Feeding 540 ml 495 ml Output Urine Total 400 ml 1700 ml # Bowel Movements 1 1 Laboratory Tests 11/20/16 05:00: Sodium Level 138, Potassium Level 3.7, Chloride Level 94L, Carbon Dioxide Level 31H, Anion Gap 13, Blood Urea Nitrogen 45H, Creatinine 0.7, Estimat Glomerular Filtration Rate , Glucose Level 90, Calcium Level 7.7L, Magnesium Level 1.7, Total Bilirubin 0.6, Aspartate Amino Transf (AST/SGOT) 20, Alanine Aminotransferase (ALT/SGPT) 15, Alkaline Phosphatase 132H, Total Protein 5.0L, Albumin 1.9L, Globulin 3.1, Albumin/Globulin Ratio 0.6L Height (Feet): 5 Height (Inches): 4.00 Weight (Pounds): 175 Objective General Appearance: WD/WN, alert, confused Neck: supple, trach site clean. no bleeding Cardiovascular: regular rhythm Respiratory/Chest: rhonchi - bilaterally Abdomen: normal bowel sounds, non tender, soft, no organomegaly. +gt Edema: moderate edema Neurologic: alert, responsive Skin: normal pigmentation STEPHANIE FARFAN Nov 20, 2016 18:11
[2016-11-20 20:00] VITALS: BP 132/102
[2016-11-20] MEDS ORDERED: Epogen (for non ESRD use) SUBQ SCH (21:00)
--- NOTE | 2016-11-20 23:58 | Progress Note ---
DATE: 11/19/2016 CARDIOLOGY PROGRESS NOTE SUBJECTIVE: The patient remains on ventilator support. Weaning is not an option at this time. Monitored rhythm remains atrial fibrillation with frequent ventricular ectopic. Ventricular rates are overall improved. OBJECTIVE: VITAL SIGNS: Blood pressure 114/82, pulse 88, and respirations 22. The patient has no fevers. NECK: Supple. LUNGS: With bilateral rales. CARDIAC: Irregularly irregular rhythm. Normal S1 and S2. A 1/6 systolic apical murmur. ABDOMEN: Soft. EXTREMITIES: With trace edema. LABORATORY AND DIAGNOSTIC DATA: Wound cultures are polymicrobial. Sputum cultures are gram-negative bacillus. White count 17 and hemoglobin 9.2. Sodium 135, potassium 3.7, bicarbonate 30, BUN 43, and creatinine 0.7. IMPRESSION: 1. Acute on chronic systolic congestive heart failure. 2. Respiratory failure. 3. Tachy-boris syndrome. 4. Paroxysmal atrial fibrillation. 5. Sepsis. 6. Atrial fibrillation with controlled ventricular response presently. 7. Lactic acidosis, recovered. 8. Thrombocytopenia. 9. Anemia. 10. Dysphagia with gastrostomy tube. PLAN: 1. No weaning. 2. Antimicrobials. 3. Pending final cultures and adjust. 4. Titrate anti-failure regimen and diuretics. 5. Maintain beta-tin and angiotensin-converting enzyme inhibitor. 6. Due to poor performance status presently he is not a candidate for synchronized pacing. Ryan Desai M.D. DR: VANITA JOB#: [id number] CC:
[2016-11-21] VITALS: BP 119/83
--- NOTE | 2016-11-21 00:58 | Progress Note ---
DATE: 11/20/2016 CARDIOLOGY PROGRESS NOTE: SUBJECTIVE: The patient remains on ventilator support. No weaning has planned. Atrial fibrillation on the monitor. Rates are controlled. OBJECTIVE: LUNGS: Bilateral breath sounds. Diminished at bases. Few rales. HEART: Irregularly irregular rhythm. Normal S1, S2. No pauses. ABDOMEN: Soft. G-tube intact. EXTREMITIES: With trace edema. LABORATORY DATA: Sodium 138, potassium 3.7, bicarbonate 31, BUN 45, and creatinine 0.7. Magnesium 1.7. Albumin 1.9. White count 17.4 and hemoglobin 9.2. IMPRESSION: 1. Sepsis syndrome. 2. Anemia. 3. Acute on chronic systolic congestive heart failure. 4. Atrial fibrillation now with controlled ventricular response. 5. Tachy-boris syndrome with history of boris arrhythmias. 6. Nonsustained ventricular arrhythmias. 7. Severe protein-calorie malnutrition . 8. Thrombocytopenia. 9. Ventilator-dependent respiratory failure. 10. Wound infection. 11. Sepsis syndrome, remains serious with guarded prognosis. PLAN: Advance antihypertensive and anti-failure regimen. Diuresis. Antimicrobials. Await final cultures. No weaning at this time. Cardiac monitoring. High risk. Not a candidate for pacing a defibrillator at this time due to poor performance status. Ryan Desai M.D. DR: Nova JOB#: [id number] CC:
[2016-11-21] MEDS: NovoLOG Insulin Flexpen SUBQ SCH ×3 (01:59→11:14)
[2016-11-21 04:00] VITALS: BP 130/74
[2016-11-21 04:45] LABS: MEAN CORPUSCULAR HGB CONC 33.4 G/DL (32.0-36.0); MEAN CORPUSCULAR VOLUME 96 FL (80-99); PLATELET COUNT 73 K/UL (150-450); RED BLOOD COUNT 2.76 M/UL (4.70-6.10); RED CELL DISTRIBUTION WIDTH 15.8 % (11.6-14.8); WHITE BLOOD COUNT 9.7 K/UL (4.8-10.8)
[2016-11-21 05:45] LABS: ALANINE AMINOTRANSFERASE 14 U/L (3-41); ALBUMIN/GLOBULIN RATIO 0.5 (1.0-2.7); ANION GAP 10 (5-15); ASPARTATE AMINO TRANSFERASE 18 U/L (5-40); CALCIUM 8.1 mg/dL (8.6-10.2); CARBON DIOXIDE 31 mEQ/L (20-30); CHLORIDE 97 mEQ/L (98-107); CREATININE 0.7 mg/dL (0.7-1.2); HEMOLYSIS 19; POTASSIUM 3.9 mEQ/L (3.4-4.9); SODIUM 138 mEQ/L (135-145); TOTAL PROTEIN 5.4 g/dL (6.6-8.7)
[2016-11-21 05:49] LABS: MAGNESIUM 1.7 mg/dL (1.7-2.5)
[2016-11-21 08:00] VITALS: BP 135/93
--- NOTE | 2016-11-21 08:20 | Pulmonology Progress Note ---
Assessment/Plan Assessment/Plan IMPRESSION: 1. Paroxysmal atrial fibrillation with rapid ventricular response. intermittent atrial flutter 2. Acute on chronic systolic congestive heart failure. 3. Sepsis syndrome. 4. leukocytosis persistent 5. Ventilator-dependent respiratory failure. 6. thrombocytopenia 7. Severe cardiomyopathy. 8. anemia 9. acute on chronic encephalopathy 10. GT 11. Aspiration PLAN: 1. Ventilator management 2. culture noted 3. antibiotics. ID evaluation 4. rhythm controlled 5. monitor acid-based status. 6. beta-tin and angiotensin-converting enzyme inhibitor per cardiology. 7. noted SNF meds 8. tolerating feeds 9. Cardiac monitoring noted 10. transfer back to [facility] today impression, plan, and exam edited and reviewed in detail care discussed with RN Subjective ROS Limited/Unobtainable: Yes Allergies: Coded Allergies: No Known Allergies (Unverified , 11/17/16) Subjective withdrawn overall care noted tele reviewed care discussed hemodynamics and labs much improved Objective Last 24 Hour Vital Signs Date Time Temp Pulse Resp B/P Pulse Ox O2 Delivery O2 Flow Rate FiO2 11/21/16 06:41 78 20 30 11/21/16 05:13 75 15 30 11/21/16 04:00 50 11/21/16 04:00 97.5 88 18 130/74 100 Mechanical Ventilator 30 11/21/16 04:00 85 11/21/16 03:28 82 15 30 11/21/16 00:59 85 12 30 11/21/16 00:00 85 11/21/16 00:00 98.1 88 18 119/83 99 Mechanical Ventilator 30 11/21/16 00:00 50 11/20/16 23:00 81 12 30 11/20/16 21:17 79 14 30 11/20/16 20:57 166/105 11/20/16 20:56 77 166/105 11/20/16 20:56 77 166/105 11/20/16 20:00 86 11/20/16 20:00 96.8 91 12 132/102 100 Room Air 11/20/16 20:00 50 11/20/16 19:07 77 13 30 11/20/16 17:12 75 18 30 11/20/16 16:00 50 11/20/16 16:00 96.8 83 15 166/105 100 11/20/16 16:00 89 11/20/16 15:41 83 22 35 11/20/16 13:16 79 17 45 11/20/16 12:00 50 11/20/16 12:00 86 11/20/16 12:00 97.7 79 17 116/91 100 Mechanical Ventilator 45 11/20/16 11:03 75 16 45 11/20/16 10:08 84 127/90 11/20/16 10:08 127/90 11/20/16 10:08 86 127/90 11/20/16 08:44 84 16 50 Intake and Output 11/20/16 11/21/16 19:00 07:00 Intake Total 820 ml 420 ml Output Total 675 ml 300 ml Balance 145 ml 120 ml Free Water 170 ml 60 ml IV Total 50 ml Tube Feeding 540 ml 360 ml Other 60 ml Output Urine Total 675 ml 300 ml Objective WDWN NAD trach clear breath sounds bilaterally without rhonchi or wheeze S1S2 iRRR without MRG; rate controlled NABS nontender no HSM; GT no CC; noted edema nonfocal withdrawn Microbiology Date/Time Source Procedure Growth Status 11/18/16 09:45 Blood Blood Culture - Preliminary NO GROWTH AFTER 24 HOURS Resulted 11/19/16 08:00 Sputum Gram Stain - Final Resulted 11/19/16 08:00 Sputum Culture - Preliminary Gram Negative Bacillus 1 Resulted Laboratory Tests 11/21/16 03:10: White Blood Count 9.7, Red Blood Count 2.76L, Hemoglobin 8.8L, Hematocrit 26.4L , Mean Corpuscular Volume 96, Mean Corpuscular Hemoglobin 32.0H, Mean Corpuscular Hemoglobin Concent 33.4, Red Cell Distribution Width 15.8H, Platelet Count 73L, Mean Platelet Volume , Neutrophils (%) (Auto) , Lymphocytes (%) (Auto) , Monocytes (%) (Auto) , Eosinophils (%) (Auto) , Basophils (%) (Auto ) , Sodium Level 138, Potassium Level 3.9, Chloride Level 97L, Carbon Dioxide Level 31H, Anion Gap 10, Blood Urea Nitrogen 45H, Creatinine 0.7, Estimat Glomerular Filtration Rate , Glucose Level 165H, Calcium Level 8.1L, Magnesium Level 1.7, Total Bilirubin 0.5, Aspartate Amino Transf (AST/SGOT) 18, Alanine Aminotransferase (ALT/SGPT) 14, Alkaline Phosphatase 146H, Pro-B-Type Natriuretic Peptide 82748T, Total Protein 5.4L, Albumin 1.8L, Globulin 3.6, Albumin/Globulin Ratio 0.5L Current Medications Medications (Trade) Dose Ordered Sig/Josh Route PRN Reason Start Time Stop Time Status Last Admin Dose Admin Acetaminophen (Tylenol) 650 mg Q6H PRN GT Prn Headache/Temp > 101 11/18/16 06:00 12/18/16 05:59 Acetaminophen/ Hydrocodone Bitart ([place] 5/325) 1 tab Q12H PRN GT For Pain 11/18/16 06:00 11/25/16 05:59 11/20/16 04:55 Ascorbic Acid (Vitamin C) 500 mg DAILY GT 11/18/16 09:00 12/18/16 08:59 11/20/16 10:07 Calcitriol (Rocatrol) 0.25 mcg EVERY OTHER DAY GT 11/18/16 09:00 12/18/16 08:59 11/20/16 10:07 Clonidine HCl (Catapres) 0.1 mg Q4HR PRN GT PRN FOR SBP>150 11/18/16 07:00 12/18/16 05:59 Collagenase (Santyl) 1 applic DAILY TOPIC 11/20/16 09:00 12/20/16 08:59 11/20/16 09:00 Dextrose (Dextrose 50%) STAT PRN IV Hypoglycemia 11/18/16 06:15 12/18/16 06:14 11/18/16 06:46 Docusate Sodium (Colace) 100 mg DAILY GT 11/18/16 09:00 12/18/16 08:59 11/20/16 10:07 Enalapril Maleate (Vasotec) 20 mg EVERY 12 HOURS GT 11/21/16 09:00 12/21/16 08:59 Epoetin Francesco (Procrit (for non ESRD use)) 10,000 units SUN-WED-SUN SUBQ 11/20/16 21:00 12/20/16 20:59 11/20/16 20:58 Furosemide (Lasix) 40 mg DAILY IV 11/19/16 09:00 12/19/16 08:59 11/20/16 10:07 Gabapentin (Neurontin) 300 mg THREE TIMES A DAY GT 11/18/16 09:00 12/18/16 08:59 11/20/16 19:53 Influenza Virus Vaccine (Flu Vaccine) 0.5 ml ONCE ONCE IM 11/18/16 10:00 11/18/16 10:01 UNV Insulin Aspart (NovoLOG) EVERY 6 HOURS SUBQ 11/18/16 07:00 12/18/16 06:59 11/21/16 05:51 Magnesium Hydroxide (Mom) 30 ml QHS PRN GT Constipation 11/18/16 06:00 12/18/16 05:59 Metoprolol Tartrate (Lopressor) 25 mg Q12HR GT 11/19/16 21:00 12/19/16 20:59 11/20/16 20:56 Multivitamins 5 ml 5 ml DAILY GT 11/18/16 09:00 12/18/16 08:59 11/20/16 10:07 Ondansetron HCl (Zofran) 4 mg Q6H PRN IV Nausea & Vomiting 11/18/16 06:00 12/18/16 05:59 Piperacillin Sod/ Tazobactam Sod/ Dextrose (Zosyn/D5W) 100 ml @ 25 mls/hr EVERY 8 HOURS IV 11/18/16 14:00 11/23/16 13:59 11/21/16 05:50 Pneumococcal Polyvalent Vaccine (Pneumovax) 0.5 ml ONCE ONCE IM 11/18/16 10:00 11/18/16 10:01 UNV Sodium Phosphate (Fleet's Sodium Phosl Enema) 133 ml DAILY PRN RECTAL Constipation 11/18/16 06:00 12/18/16 05:59 Spironolactone (Aldactone) 25 mg DAILY GT 11/18/16 09:00 12/18/16 08:59 11/20/16 10:07 Zinc Sulfate (Zinc Sulfate) 220 mg DAILY GT 11/18/16 09:00 12/18/16 08:59 11/20/16 10:07 BREANNE COHEN Nov 21, 2016 08:20
[2016-11-21] MEDS: Docusate 100mg tablet GT SCH (09:26)
[2016-11-21] MEDS: Spironolactone 25mg tab GT SCH (09:26)
[2016-11-21] MEDS: Gabapentin 300 MG/6 ML Soln GT SCH ×2 (09:26→13:25)
[2016-11-21] MEDS: Zinc Sulfate 220mg cap GT SCH (09:26)
[2016-11-21] MEDS: Multivitamin 5ml Liquid GT SCH (09:26)
[2016-11-21] MEDS: Ascorbic Acid 500mg tab GT SCH (09:26)
[2016-11-21] MEDS: Metoprolol 25mg tab GT SCH (09:27)
[2016-11-21 12:00] VITALS: BP 134/97
--- NOTE | 2016-11-21 12:15 | Diagnostic Imaging Report ---
Indication: Cough Comparison: 11/17/16 A single view chest radiograph was obtained. Findings: Pulmonary edema is present but may have improved slightly since the last study. Heart remains enlarged. There is a probable left pleural effusion. Impression: Congestive heart failure. Probable improvement since the last study
--- NOTE | 2016-11-21 12:17 | Infectious Diseases Prog Note ---
"Assessment/Plan Assessment/Plan antibiotics : zosyn A 1. klebsiella | gram negative pneumonia 2. respiratory failure 3. leucocytosis improving 4. rectal VRE colonization P 1. d/c zosyn 2. start inhaled colistin for 7 days 3. will follow up cultures Subjective ROS Limited/Unobtainable: Yes Allergies: Coded Allergies: No Known Allergies (Unverified , 11/17/16) Objective Vital Signs Last 24 Hour Vital Signs Date Time Temp Pulse Resp B/P Pulse Ox O2 Delivery O2 Flow Rate FiO2 11/21/16 10:52 80 22 30 11/21/16 09:27 135/93 11/21/16 09:27 77 135/93 11/21/16 09:24 77 20 30 11/21/16 08:00 50 11/21/16 08:00 85 11/21/16 08:00 97.5 77 22 135/93 97 Mechanical Ventilator 30 11/21/16 06:41 78 20 30 11/21/16 05:13 75 15 30 11/21/16 04:00 50 11/21/16 04:00 97.5 88 18 130/74 100 Mechanical Ventilator 30 11/21/16 04:00 85 11/21/16 03:28 82 15 30 11/21/16 00:59 85 12 30 11/21/16 00:00 85 11/21/16 00:00 98.1 88 18 119/83 99 Mechanical Ventilator 30 11/21/16 00:00 50 11/20/16 23:00 81 12 30 11/20/16 21:17 79 14 30 11/20/16 20:57 166/105 11/20/16 20:56 77 166/105 11/20/16 20:56 77 166/105 11/20/16 20:00 86 11/20/16 20:00 96.8 91 12 132/102 100 Room Air 11/20/16 20:00 50 11/20/16 19:07 77 13 30 11/20/16 17:12 75 18 30 11/20/16 16:00 50 11/20/16 16:00 96.8 83 15 166/105 100 11/20/16 16:00 89 11/20/16 15:41 83 22 35 11/20/16 13:16 79 17 45 Height (Feet): 5 Height (Inches): 4.00 Weight (Pounds): 175 HEENT: status post trach Respiratory/Chest: lungs clear Cardiovascular: normal rate, regular rhythm, no gallop/murmur Abdomen: soft, non tender, other - GT Extremities: no edema Microbiology Date/Time Source Procedure Growth Status 11/19/16 08:00 Sputum Gram Stain - Final Resulted 11/19/16 08:00 Sputum Culture - Preliminary K.pneumoniae Carbapenem Resist Gram Negative Bacillus 2 Resulted Laboratory Tests Test 11/21/16 03:10 White Blood Count 9.7 K/UL (4.8-10.8) Red Blood Count 2.76 M/UL (4.70-6.10) L Hemoglobin 8.8 G/DL (14.2-18.0) L Hematocrit 26.4 % (42.0-52.0) L Mean Corpuscular Volume 96 FL (80-99) Mean Corpuscular Hemoglobin 32.0 PG (27.0-31.0) H Mean Corpuscular Hemoglobin Concent 33.4 G/DL (32.0-36.0) Red Cell Distribution Width 15.8 % (11.6-14.8) H Platelet Count 73 K/UL (150-450) L Mean Platelet Volume FL (6.5-10.1) Neutrophils (%) (Auto) % (45.0-75.0) Lymphocytes (%) (Auto) % (20.0-45.0) Monocytes (%) (Auto) % (1.0-10.0) Eosinophils (%) (Auto) % (0.0-3.0) Basophils (%) (Auto) % (0.0-2.0) Sodium Level 138 mEQ/L (135-145) Potassium Level 3.9 mEQ/L (3.4-4.9) Chloride Level 97 mEQ/L (98-107) L Carbon Dioxide Level 31 mEQ/L (20-30) H Anion Gap 10 (5-15) Blood Urea Nitrogen 45 mg/dL (7-23) H Creatinine 0.7 mg/dL (0.7-1.2) Estimat Glomerular Filtration Rate mL/min (>60) Glucose Level 165 mg/dL (74-106) H Calcium Level 8.1 mg/dL (8.6-10.2) L Magnesium Level 1.7 mg/dL (1.7-2.5) Total Bilirubin 0.5 mg/dL (0.0-1.2) Aspartate Amino Transf (AST/SGOT) 18 U/L (5-40) Alanine Aminotransferase (ALT/SGPT) 14 U/L (3-41) Alkaline Phosphatase 146 U/L (40-129) H Pro-B-Type Natriuretic Peptide 50718 pg/mL (0-450) H Total Protein 5.4 g/dL (6.6-8.7) L Albumin 1.8 g/dL (3.5-5.2) L Globulin 3.6 g/dL Albumin/Globulin Ratio 0.5 (1.0-2.7) L CARMEN TORRES Nov 21, 2016 12:17"
[2016-11-21] MEDS ORDERED: Colistin for inhalation INH SCH (14:00)
[2016-11-21 16:00] VITALS: BP 130/98
--- NOTE | 2016-11-21 17:27 | General Progress Note ---
Assessment/Plan Problem List: (1) CKD (chronic kidney disease) stage 2, GFR 60-89 ml/min ICD Codes: N18.2 - Chronic kidney disease, stage 2 (mild) SNOMED: 915926119 (2) Tachy-boris syndrome ICD Codes: I49.5 - Sick sinus syndrome SNOMED: 24407394 (3) Chronic respiratory failure ICD Codes: J96.10 - Chronic respiratory failure, unspecified whether with hypoxia or hypercapnia SNOMED: 91994968 (4) CHF (congestive heart failure) ICD Codes: I50.9 - Heart failure, unspecified SNOMED: 40914783 Qualifiers: Qualified Codes: I50.9 - Heart failure, unspecified (5) Pneumonia ICD Codes: J18.9 - Pneumonia, unspecified organism SNOMED: 193945234 Qualifiers: Qualified Codes: J18.9 - Pneumonia, unspecified organism (6) Sepsis ICD Codes: A41.9 - Sepsis, unspecified organism SNOMED: 66306562 Qualifiers: Qualified Codes: A41.9 - Sepsis, unspecified organism (7) Atrial fibrillation with rapid ventricular response ICD Codes: I48.91 - Unspecified atrial fibrillation SNOMED: 797593401889482 Status: stable, progressing Assessment/Plan vent support resp rx sucitoning iv abx per id monitor h/h transfuse as neded monitor for bleeding follow up cultures iv diuresis monitor cxr and lytes tele poor prognosis Subjective Allergies: Coded Allergies: No Known Allergies (Unverified , 11/17/16) Subjective no overnite events. denies chest pain minimal sob. on iv abx and lasix. pulm, cards and id noted. cxr with less chf Objective Last 24 Hour Vital Signs Date Time Temp Pulse Resp B/P Pulse Ox O2 Delivery O2 Flow Rate FiO2 11/21/16 17:01 87 16 30 11/21/16 16:00 98.1 88 20 130/98 98 Mechanical Ventilator 30 11/21/16 15:22 82 15 30 11/21/16 13:28 80 15 30 11/21/16 12:00 97.5 82 21 134/97 96 Mechanical Ventilator 30 11/21/16 12:00 50 11/21/16 10:52 80 22 30 11/21/16 09:27 135/93 11/21/16 09:27 77 135/93 11/21/16 09:24 77 20 30 11/21/16 08:00 50 11/21/16 08:00 85 11/21/16 08:00 97.5 77 22 135/93 97 Mechanical Ventilator 30 11/21/16 06:41 78 20 30 11/21/16 05:13 75 15 30 11/21/16 04:00 50 11/21/16 04:00 97.5 88 18 130/74 100 Mechanical Ventilator 30 11/21/16 04:00 85 11/21/16 03:28 82 15 30 11/21/16 00:59 85 12 30 11/21/16 00:00 85 11/21/16 00:00 98.1 88 18 119/83 99 Mechanical Ventilator 30 11/21/16 00:00 50 11/20/16 23:00 81 12 30 11/20/16 21:17 79 14 30 11/20/16 20:57 166/105 11/20/16 20:56 77 166/105 11/20/16 20:56 77 166/105 11/20/16 20:00 86 11/20/16 20:00 96.8 91 12 132/102 100 Room Air 11/20/16 20:00 50 11/20/16 19:07 77 13 30 Intake and Output 11/20/16 11/21/16 19:00 07:00 Intake Total 820 ml 520 ml Output Total 675 ml 300 ml Balance 145 ml 220 ml Free Water 170 ml 90 ml IV Total 50 ml 25 ml Tube Feeding 540 ml 405 ml Other 60 ml Output Urine Total 675 ml 300 ml Laboratory Tests 11/21/16 03:10: White Blood Count 9.7, Red Blood Count 2.76L, Hemoglobin 8.8L, Hematocrit 26.4L , Mean Corpuscular Volume 96, Mean Corpuscular Hemoglobin 32.0H, Mean Corpuscular Hemoglobin Concent 33.4, Red Cell Distribution Width 15.8H, Platelet Count 73L, Mean Platelet Volume , Neutrophils (%) (Auto) , Lymphocytes (%) (Auto) , Monocytes (%) (Auto) , Eosinophils (%) (Auto) , Basophils (%) (Auto ) , Sodium Level 138, Potassium Level 3.9, Chloride Level 97L, Carbon Dioxide Level 31H, Anion Gap 10, Blood Urea Nitrogen 45H, Creatinine 0.7, Estimat Glomerular Filtration Rate , Glucose Level 165H, Calcium Level 8.1L, Magnesium Level 1.7, Total Bilirubin 0.5, Aspartate Amino Transf (AST/SGOT) 18, Alanine Aminotransferase (ALT/SGPT) 14, Alkaline Phosphatase 146H, Pro-B-Type Natriuretic Peptide 25417K, Total Protein 5.4L, Albumin 1.8L, Globulin 3.6, Albumin/Globulin Ratio 0.5L Height (Feet): 5 Height (Inches): 4.00 Weight (Pounds): 175 Objective General Appearance: WD/WN, alert, confused Neck: supple, trach site clean. no bleeding Cardiovascular: regular rhythm Respiratory/Chest: rhonchi - bilaterally Abdomen: normal bowel sounds, non tender, soft, no organomegaly. +gt Edema: moderate edema Neurologic: alert, responsive Skin: normal pigmentation STEPHANIE FARFAN Nov 21, 2016 17:27
[2016-11-21] MEDS ORDERED: NS 275ml ONE (18:49)
--- NOTE | 2016-11-22 02:08 | Progress Note ---
DATE: 11/21/2016 CARDIOLOGY PROGRESS NOTE SUBJECTIVE: The patient remains on ventilator support. He continues to have large secretions from the tracheostomy. He continues to require diuresis and management of elevated blood pressure readings. OBJECTIVE: VITAL SIGNS: Blood pressure 130/98, pulse 88, respirations 20, afebrile. LUNGS: Bilateral rhonchi with few rales. HEART: Irregularly irregular rhythm. Normal S1 and S2. A 1/6 systolic apical murmur. ABDOMEN: Soft. EXTREMITIES: Trace edema. LABORATORY AND DIAGNOSTIC DATA: Chest x-ray reveals slight decrease in congestive heart failure. Labs noted for white count 9.7 and hemoglobin 8.8. Pro-natriuretic peptide is 48,000. BUN 45 and creatinine 0.7. Potassium 3.9. Albumin 1.8. IMPRESSION: 1. Ventilator-dependent respiratory failure. 2. Sepsis. 3. Pneumonia. 4. Acute on chronic systolic congestive heart failure. 5. Severe protein-calorie malnutrition. 6. Prerenal azotemia. 7. Acute on chronic kidney injury. 8. Paroxysmal atrial fibrillation. 9. Conduction system disease. 10. Tachycardia-bradycardia syndrome. 11. Hypertensive cardiomyopathy. PLAN: 1. Additional diuresis. 2. Replace potassium and magnesium as needed. 3. Advance failure, on antihypertensives. 4. Continue antibiotics and ventilator support. Ryan Desai M.D. DR: Sabra JOB#: [id number] CC:
--- NOTE | 2016-11-23 14:52 | Discharge Summary ---
Discharge Summary Hospital Course Date of Admission Nov 17, 2016 at 15:16 Date of Discharge Nov 21, 2016 at 18:50 Admitting Diagnosis rapid a-fib HPI Arsh Avila is a 76 year old male who was admitted on Nov 17, 2016 at 15:16 for Rapid Atrial Fibrillation Hospital Course [id number] Discharge Discharge Disposition Patient was discharged to SNF/Subacute Facility(03) Discharge Diagnoses: Melinda Ba NP Nov 23, 2016 14:52
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
== END 2016-11-21 18:50 | DRG 870 ==
LOC: EDBD 14:32 → EMR 14:52 → EDBEDREQ 15:08 → 2W 15:16 → EDBEDREQ 17:11 → 2W 23:41
PROC: 5A1955Z Respiratory Ventilation, Greater than 96 Consecutive Hours (ICD-10-PCS; principal; 2016-11-17)
PROC: 30233N1 Transfusion of Nonautologous Red Blood Cells into Peripheral Vein, Percutaneous Approach (ICD-10-PCS; 2016-11-18)
DX: A41.9 Sepsis, unspecified organism (principal); E43 Unspecified severe protein-calorie malnutrition; G93.40 Encephalopathy, unspecified; J18.9 Pneumonia, unspecified organism; I50.23 Acute on chronic systolic (congestive) heart failure; N17.9 Acute kidney failure, unspecified; J15.6 Pneumonia due to other Gram-negative bacteria; J15.0 Pneumonia due to Klebsiella pneumoniae; L89.154 Pressure ulcer of sacral region, stage 4; L89.894 Pressure ulcer of other site, stage 4; L89.613 Pressure ulcer of right heel, stage 3; Z99.11 Dependence on respirator [ventilator] status; I45.89 Other specified conduction disorders; Z43.1 Encounter for attention to gastrostomy; J96.10 Chronic respiratory failure, unspecified whether with hypoxia or hypercapnia; I13.0 Hypertensive heart and chronic kidney disease with heart failure and stage 1 through stage 4 chronic kidney disease, or unspecified chronic kidney disease; I11.0 Hypertensive heart disease with heart failure; I48.0 Paroxysmal atrial fibrillation; Z43.0 Encounter for attention to tracheostomy; D69.6 Thrombocytopenia, unspecified; D64.9 Anemia, unspecified; N18.9 Chronic kidney disease, unspecified; I49.5 Sick sinus syndrome; I45.9 Conduction disorder, unspecified
CPT/HCPCS: 36415; 71010; 80048; 80053; 81003; 82550; 82553; 82962; 83605; 83735; 83880; 84484; 85007; 85025; 86850; 86900; 86901; 86920; 87040; 87070; 87081; 87086; 87181; 87205; 93005; 93970; 94002; 94003; J1815